=== PATIENT | female | born 1945 | race African-American/Black ===

== ENCOUNTER → 2016-03-26 | Outpatient (CLI) | payer MEDICARE, OTHER ==
[2014-06-14 15:20] VITALS: BP 110/51
[~2016-03-26] MED LIST: ACET325T9 PO; ACET650S PO; ASCO10002 PO; ASCO120P PO; BISM262T9 PO; CALC-67 PO; CALC200T3 PO; CALC300T5 PO; CALC600T11 PO; CEFP200T PO; CELE200C PO; CYAN10002 IJ; CYAN200014 PO; CYCL1DRO EACHEYE; DEXT1DRO7 OP; DIPH1TAB PO; ESTR0.3T PO; FERR-26 PO; FURO-68 PO; GINS100C PO; GLUC1CAP18 PO; GLUC500T7 PO; IBUP-1060 PO; LACT1CAP29 PO; LATA2.5D3 EACHEYE; LOPE1LIQ7 PO; MESA0.37 PO; MESA800T2 PO; METH-37 PO; MINE3.5O31 EACHEYE; MOME45CR2 TP; MULT-18 PO; NYST1POW2 PO; OMEG1CAP61 PO; POTA20TA12 PO; PROP10DR2 OP; RANI300T3 PO; SULF1TAB23 PO; SULF1TAB3 PO; TIMO5DRO26 EACHEYE; TIMO5DRO5 EACHEYE; TROL177. TP; WARF5TAB PO; [UNRECOGNIZED DRUG - CODE] MC; [UNRECOGNIZED DRUG - CODE] MC; [UNRECOGNIZED DRUG - CODE] MC; [UNRECOGNIZED DRUG - CODE] PO
[2016-03-26 11:27] LABS: BASO % 0 % (0-3); EOS % 0 % (0-3); HEMATOCRIT 38.4 % (36.0-47.0); HEMOGLOBIN 12.9 g/dL (12.0-15.5); LYMPH # 1.5 x10^3/uL (1.0-4.8); LYMPH % 35 % (24-48); MEAN CORPUSCULAR HEMOGLOBIN 32 pg (25-35); MEAN CORPUSCULAR HGB CONC 34 g/dL (31-37); MEAN CORPUSCULAR VOLUME 95 fL (79-100); MONO % 6 % (0-9); NEUT % 59 % (31-73); PLATELET COUNT 175 x10^3/uL (140-400); RED BLOOD COUNT 4.02 x10^6/uL (3.50-5.40); RED CELL DISTRIBUTION WIDTH 13.9 % (11.5-14.5); WHITE BLOOD COUNT 4.3 x10^3/uL (4.0-11.0)
[2016-03-26 11:37] LABS: PROTHROMBIN TIME PATIENT 12.9 SEC (11.7-14.0)
[2016-03-26 11:45] LABS: ALBUMIN 3.4 g/dL (3.4-5.0); CALCIUM 8.9 mg/dL (8.5-10.1); CREATININE 0.6 mg/dL (0.6-1.0); GFR 119.2; POTASSIUM 4.3 mmol/L (3.5-5.1)
[2016-03-26 12:58] LABS: BILIRUBIN,URINE NEGATIVE (NEG); GLUCOSE,URINE NEGATIVE (NEG); NITRITE,URINE NEGATIVE (NEG); PROTEIN,URINE NEGATIVE (NEG-TRACE); UROBILINOGEN,URINE 0.2 mg/dL (0.2 mg/dL)
[2016-03-26 13:21] LABS: BACTERIA,URINE FEW /HPF (0-FEW); RBC,URINE OCC /HPF (0-2); SQUAMOUS EPITHELIAL CELL,UR MOD /LPF
== END | disposition home or self-care (01) ==
LOC: SURGPAT 10:31
PROVIDERS: ATTEND Orthopaedic Surgery
DX: Z01.812 Encounter for preprocedural laboratory examination (principal)
CPT/HCPCS: 36415; 80048; 81001; 82040; 83036; 85027; 85610; 85651; 85730; 87086; 87641

== ENCOUNTER 2016-04-20 10:36 | Inpatient (IN) | payer MEDICARE, OTHER ==
--- NOTE | 2016-04-19 12:37 | PDOC1 ---
History and Physical Date of Admission Date of Admission DATE: 04/20/16 Identification/Chief Complaint Chief Complaint left knee osteoarthritis pain Source Source: Chart review History of Present Illness History of Present Illness Alexandria is a 70 year old female here today for her right knee. She has a history of right total knee arthroplasty done by Dr. Guerrier in may of 2015. She stated she fell 2 weeks ago, she did not fall on her knee but she did fall on the floor. She would also like to discuss having her left knee replaced. We obtained a updated medication list today. Past Medical History Cardiovascular: HTN, Hyperlipidemia GI: GERD, Peptic Ulcer disease, Other (diverticulitis) Musculoskeletal: Osteoarthritis Rheumatologic: Other Endocrine: Diabetes (Diabetes Insipidus) Past Surgical History Past Surgical History: Hysterectomy, Colon Resection, Other (right TKA 05/2015) Family History Family History: Cancer, Diabetes, Heart Disease, Osteo Arthiritis, Stroke Social History Smoke: No ALCOHOL: none Drugs: None Current Medications Current Medications Active Scripts Active Reported Latanoprost 2.5 Ml Drops 1 Drop EACHEYE QHS Vitamin B-12 (Cyanocobalamin (Vitamin B-12)) 2,000 Mcg Tablet 2,000 Mcg PO DAILY Robaxin (Methocarbamol) 500 Mg Tablet 500 Mg PO TID Restasis (Cyclosporine) 1 Each Droperette 1 Drop EACHEYE BID Bactrim 400-80 Mg Tablet (Sulfamethoxazole/Trimethoprim) 1 Each Tablet 1 Each PO DAILY Tylenol (Acetaminophen) 325 Mg Tablet 650 Mg PO PRN PRN Not given this hospitalization. May resume at home as needed for pain. Artificial Tears Eye Oint (Mineral Oil/Petrolatum,White) 3.5 Gm Oint...g. 3.5 Gm EACHEYE HS last dose 06/13/14 at 9 pm next dose due 06/14/14 at 9 pm. Probiotic (Lactobacillus Combo No.10) 1 Each Capsule 1 Each PO DAILY Last dose 06/14/14 at 8 am next dose 06/15/14 at 8 am Fish Oil 1,200 Mg Softgel ([place]-3S/Dha/Epa/Fish Oil) 1 Each Capsule 1 Each PO DAILY NOt given. May resume at home as ordered by doctor. Glucosamine Chondroitin Cap (Gluc Hcl/Csa/Vazquez Hy/Hyalur Ac) 1 Each Capsule 1 Each PO DAILY NOt given. May resume at home as ordered by doctor. Vitamin C (Ascorbic Acid) 1,000 Mg Tablet 1,000 Mg PO DAILY NOt given. May resume at home as ordered by doctor. Calcium Carbonate 600 Mg Tablet 600 Mg PO DAILY NOt given. May resume at home as ordered by doctor. Apriso (Mesalamine) 0.375 Gm Cap.er.24h 0.375 Gm PO BID NOt given. May resume at home as ordered by doctor if needed. Potassium Chloride 20 Meq Tab.er.prt 20 Meq PO PRN Q24HRS PRN Not given. May resume at home as ordered by doctor if needed with lasix. Daily Vitamin (Multivitamin) 1 Each Tablet 1 Each PO DAILY Last dose 06/14/14 next dose 06/15/14 Pepto-Bismol (Bismuth Subsalicylate) 262 Mg Tab.chew 262 Mg PO PRN DAILY Not given. May resume at home as ordered by doctor. Imodium A-D (Loperamide Hcl) 1 Mg/7.5 Ml Liquid 1 Mg PO PRN DAILY Not given. May resume at home as ordered by doctor for loose stools. Ferrous Sulfate 325 Mg Tablet 325 Mg PO DAILY Last dose 06/14/14 next dose due 06/15/14. Zantac (Ranitidine Hcl) 300 Mg Tablet 300 Mg PO HS Lasix (Furosemide) 40 Mg Tablet 40 Mg PO PRN Q24HRS NOt given. May resume at home as needed for water pill. Restasis (Cyclosporine) 1 Each Droperette 0.05 % EACHEYE BID last dose 06/14/14 at 9 am. Next dose due 06/14/14 at 9 pm. Allergies Allergies: Coded Allergies: Penicillins (Verified Allergy, Intermediate, RASH AND HIVES, 03/26/16) morphine (Verified Adverse Reaction, Intermediate, Nausea and Vomiting, ) oxycodone (Verified Adverse Reaction, Intermediate, Nausea, 03/26/16) Physical Exam General: Alert, Oriented X3, Cooperative, No acute distress HEENT: Atraumatic, EOMI Lungs: Normal air movement Heart: RRR Abdomen: Soft Extremities: No clubbing, No cyanosis, Normal pulses, Other (The right knee shows normal alignment, no masses and no effusion. No tenderness to palpation. Range of motion is 0-120 degrees, with typical total knee crepitus but no pain at the extremes of motion. The knee is stable to varus and valgus stress without subluxation or laxity. Muscle strength is normal (5/5) for quadriceps and hamstrings, and muscle tone is normal. The extensor mechanism is intact. The skin shows a well-healed midline scar from total knee arthroplasty. No drainage lesions or ulcers. Light touch sensation is intact. No edema and no varicosities. Dorsalis pedis pulse is intact and capillary refill is normal.) Skin: No rashes, No breakdown, No significant lesion Neuro: Normal speech, Sensation intact Psych/Mental Status: Mental status NL, Mood NL Images Images IMAGING REPORT Joint survey hips, knees, and ankles Clinical information: Preop for left total knee arthroplasty Comparison: None. Findings Bones: The mechanical axis from hip joint ankle joint, and the femoral shaft create a 5 angle. There is a right total knee arthroplasty in good position. Joints: There is narrowing of the left knee joint but no malalignment. The right total knee appears aligned correctly with the mechanical axis through the center of the knee joint. Soft tissue: Normal. Impression: Severe left knee osteoarthritis with no varus or valgus malalignment. The femoral shaft has 5 angle from the mechanical axis. Dictated and Signed Using Voice Recognition Software Aubrey Guerrier MD VTE Prophylaxis Ordered VTE Prophylaxis Devices: Yes VTE Pharmacological Prophylaxi: Yes Assessment/Plan Assessment/Plan left knee osteoarthritis. She and Dr. Guerrier had a long discussion about knee replacement surgery. She is 70 years old, and has failed other treatments such as supervised physical therapy, cortisone injections, and glucosamine. She takes Tylenol for pain. She has no one at home with her in think she would need to go to longterm postoperatively. I did her right total knee arthroplasty previously and she did well. She had surgery with Dr. Rashid for cervical spinal stenosis in October. We discussed the potential risks of infection, neurovascular injury, bleeding, blood clots, need for revision surgery, or other potential surgical or anesthetic complications. All of her questions were answered and she desires to proceed with left total knee arthroplasty at a mutually convenient date. DIANE ENNIS Apr 19, 2016 12:37
[2016-04-20] VITALS (7 sets, daily range): BP systolic 100–130; BP diastolic 45–64
[~2016-04-20] VITALS: Ht 167.6 cm; Wt 93.4 kg
[~2016-04-20 10:36] MED LIST changes: +ACETAMINOPHEN 500 MG TABLET PO PRN; +CELECOXIB 200 MG CAPSULE PO PRN; +CLINDAMYCIN 600MG PREMIX 50 ML IV PRN; +FENTANYL PF 100 MCG/2 ML VIAL. IV PRN; +IV RINGERS,LACTATED 1000ML 1,000 ML IV SCH; +LIDOCAINE 1% 1 ML SYRINGE. ID PRN; +MORPHINE SULFATE 5 MG, KETOROLAC TROMETHAMINE 30 MG, ROPIVacaine 0.5% PF 60 ML, EPINEPH... INT ART ONE; +ONDANSETRON PF 4 MG/2 ML VIAL. IV PRN; +PROCHLORPERAZINE 10 MG/2 ML VIAL. IV PRN; +TOBRAMYCIN POWDER 1.2 GM VIAL. ONE; +VANCOMYCIN 1 GM VIAL. ONE
[2016-04-20] MEDS ORDERED: LIDOCAINE 2% 100 MG/5 ML DISP.SYRIN. ONE (11:13)
[2016-04-20] MEDS ORDERED: FENTANYL PF 250 MCG/5 ML VIAL. ONE (11:13)
[2016-04-20] MEDS ORDERED: PROPOFOL 20 ML IV ONE (11:13)
[2016-04-20] MEDS ORDERED: SEVOFLURANE 61 TO 120 MINUTES. IH ONE (11:13)
[2016-04-20] MEDS ORDERED: FAMOTIDINE 20 MG/2 ML VIAL ONE (11:13)
[2016-04-20] MEDS ORDERED: ONDANSETRON PF 4 MG/2 ML VIAL. ONE (11:14)
[2016-04-20] MEDS ORDERED: CELE200C PO (11:30)
[2016-04-20] MEDS ORDERED: SCOPOLAMINE 1.5MG PATCH. TD ONE ×2 (12:03→12:15)
[2016-04-20] MEDS ORDERED: EPHEDRINE PF IN SALINE 50 MG/5 ML DISP.SYRIN. IV ONE (13:48)
[2016-04-20] MEDS ORDERED: GLYCOPYRROLATE 1 MG/5 ML VIAL. ONE (14:20)
[2016-04-20] MEDS ORDERED: NEOSTIGMINE METHYLSULFATE 5 MG/5 ML SYRINGE. ONE (14:20)
[2016-04-20] MEDS: IV DEXTROSE 5 %-0.45 % NACL 1,000 ML IV SCH (14:42)
--- NOTE | 2016-04-20 14:42 | PDOC4 ---
Operative Note Operative Note Date of Procedure: April 20, 2016 Pre-Op Diagnosis: Osteoarthritis left knee Post-Op Diagnosis: Osteoarthritis left knee Procedure: left total knee arthroplasty Surgeon: Edilberto Guerrier MD Edge Burnisher Uppers: Brigida Uribe PA-C Anesthesia: General EBL: 100 mL Specimens Obtained: left knee bone and soft tissue Complications: none Implant Company: [employer] Drains: pain catheter Tourniquet time: 61 minutes Indications for Procedure: Arthritis pain unrelieved by nonoperative management. Findings: Severe osteoarthritis with bone on bone contact in all three compartments Implants used: Size 5 left bicruciate stabilized Journey II BCS cobalt chrome femoral component, size 5 left Journey nonporous tibial baseplate, size 3 -4 9 mm left Journey II BCS XLPE articular insert, 35 mm oval Sofi II resurfacing patellar component Procedure in Detail: The patient was identified in the preoperative holding area, and the correct left extremity was marked by me. The patient was taken to the operating room where the patient was anesthetized by the Department of Anesthesia. Preoperative antibiotics were given intravenously. Tranexamic acid was not given in this patient due to underlying risks. A "time-out" procedure was performed. The patient was positioned supine on the operative table with a tourniquet on the upper thigh. The limb was thoroughly prepped and draped in sterile fashion. An impervious stockinet and adhesive drape were used such that the skin was entirely covered. An Mullins leg lockhart was used. The operating team wore personal exhaust-ventilated hoods. The tourniquet was inflated to 350 mm Hg. A midline skin incision was made with a scalpel using the patella and tibial tubercle as landmarks. Electrocautery was used for hemostasis. My salon assistant used rake retractors. A medial parapatellar arthrotomy incision was used with extension into the distal quadriceps tendon. The patella was retracted laterally and Hohmann retractors were now used by my salon assistant. Excess synovium, the menisci, and the cruciate ligaments were resected sharply. The patella was assessed and excess synovium and osteophytes around the patellar articulation were removed. The patella was measured with a caliper, cut freehand with a saw using caliper measurements, sized, and then drilled for an oval three-pegged patella component. Periarticular injection was used in the suprapatellar pouch and distal quadriceps muscle. Whitesides's line was assessed on the femur. An intra-medullary 5 degree cutting guide was pinned to the femur, and a distal femoral cut was made with an oscillating saw. An additional 2 mm resection was used due to the deep femoral sulcus, and deficient condyle.My salon assistant held Hohmann retractors and an Army-Will[place]ord retractor to protect the medial and lateral collateral ligaments, the patellar tendon, the skin and the other soft tissues. An anterior referencing guide was applied with external rotation of 5 to match Whitesides line. A 5-in-1 Journey II cutting guide was then applied and pinned to the femur. The posterior, anterior, and all chamfer cuts were made with the oscillating saw. An extramedullary guide was pinned to the tibia and rotational alignment and the planned resection thickness assessed. An external alignment wendie was used to verify the planned cut in the varus-valgus plane and regarding posterior slope referencing the tibial tubercle, the tibial shaft, the ankle joint, and the second metatarsal. The upper tibia was cut made with an oscillating saw. My salon assistant held Hohmann retractors and a posterior cruciate ligament retractor to protect the medial and lateral collateral ligaments, the patellar tendon, the skin, the peroneal nerve and the other soft tissues. The upper tibia was sized with a trial baseplate. The posterior compartment was cleared of osteophytes and loose bodies, and posterior capsule released. Lisa-articular injection was used in the posterior compartment. The box cut for a posterior stabilized component was made. A preliminary reduction was performed with a trial femur, trial tibial baseplate and trial polyethylene. Soft-tissue balancing was now performed, and extension and rotation of the alignments was checked using a guide wendie in the tibial trial and a guide pin in the femur. No additional releases were required. The stability was assessed using different thicknesses of tibial articular surface to find satisfactory stability and good range of motion. The rotation of the tibial component was marked on the upper tibia. Final trial reduction was now performed verifying patella tracking and tibiofemoral stability and alignment. The tibia preparation was completed with a drill, saw, and fin punch at the previously noted rotation. The final implants were verified and opened. Outer gloves were changed by the operating team. The bone cuts were washed thoroughly with the [employer] InterPulse device and dried. Two packages of Palacos bone cement were mixed in powdered form with 1 gm of Vancomycin and 1.2 g tobramycin, then vacuum-mixed with the monomer, and placed into a cement gun. The cut surfaces of the bone were thoroughly dried with Adler-tip suction and with laparotomy sponges for cement interdigitation. The final components were cemented into place. The knee was kept at full extension while the cement hardened, and excess cement was removed. No tranexamic acid was given at this point. A final periarticular injection was used for pain relief. The tourniquet was released, and electrocautery was used for hemostasis. A final check of [id number] and stability was made, and the polyethylene implant final size was chosen. The polyethylene implant was secured to the tibial baseplate, and the knee was reduced a final time. Thorough irrigation was used. A pain catheter was inserted. The arthrotomy was closed with interrupted [id number] #1 PDS suture. The capsulotomy was then run with #1 STRATAFIX symmetric PDS plus. The subcutaneous tissues were closed with #2-0 Vicryl by my salon assistant. The skin was reapproximated with 3-0 Monocryl and Steri-Strips by my salon assistant. A bulky sterile dressing was applied. Needle and sponge counts were correct. EDILBERTO GUERRIER MD Apr 20, 2016 14:42
[2016-04-20] MEDS ORDERED: FUROSEMIDE 40 MG TABLET PO PRN (14:45)
[2016-04-20] MEDS ORDERED: METOCLOPRAMIDE HCL 10 MG/2 ML VIAL. IV PRN (14:45)
[2016-04-20] MEDS ORDERED: FENTANYL PF 100 MCG/2 ML VIAL. IV PRN ×2 (14:45)
[2016-04-20] MEDS ORDERED: 0.9 % SODIUM CHLORIDE 10 ML DISP.SYRIN. IV PRN (14:45)
[2016-04-20] MEDS ORDERED: ACETAMINOPHEN 325 MG TABLET. PO PRN (14:45)
[2016-04-20] MEDS ORDERED: DIPHENHYDRAMINE 50 MG/ML VIAL IV PRN (14:45)
[2016-04-20] MEDS ORDERED: DEXTROSE 50% 25 GM / 50ML DISP.SYRIN. IV PRN (14:45)
[2016-04-20] MEDS ORDERED: PROCHLORPERAZINE 10 MG/2 ML VIAL. IV PRN (14:45)
[2016-04-20] MEDS ORDERED: HYDROCODONE/APAP 10/325 TABLET. PO PRN (14:45)
[2016-04-20] MEDS ORDERED: POTASSIUM CHLORIDE 20 MEQ TABLET.ER. PO PRN (14:45)
[2016-04-20] MEDS ORDERED: CALCIUM CARBONATE 500 MG TAB.CHEW PO PRN (14:45)
[2016-04-20] MEDS ORDERED: ZOLPIDEM 5 MG TABLET. PO PRN (14:45)
[2016-04-20] MEDS ORDERED: PROCHLORPERAZINE 5 MG TABLET. PO PRN (14:45)
[2016-04-20] MEDS ORDERED: TRAMADOL 50 MG TABLET. PO PRN ×2 (14:45)
--- NOTE | 2016-04-20 15:13 | RAD ---
Portable left knee, 2 views, 04/20/2016: History: Postop evaluation A total knee prosthesis is in place in satisfactory position. There is no evidence of a retained surgical instrument, needle or radiopaque sponge on these 2 views.
[2016-04-20] MEDS: FERROUS SULFATE 325 MG TABLET PO SCH (18:01)
[2016-04-20] MEDS: CLINDAMYCIN 600MG PREMIX 50 ML IV SCH (18:01)
[2016-04-20] MEDS: SENNOSIDES/DOCUSATE 8.6/50MG TABLET. PO SCH (18:02)
[2016-04-20] MEDS: KETOROLAC TROMETHAMINE 30 MG, BUPIVACAINE MPF 0.25% 20 ML, EPINEPHRINE 0.5 MG in TOTAL ... INT ART SCH (18:06)
[2016-04-20] MEDS: METHOCARBAMOL 500 MG TABLET PO SCH (20:56)
[2016-04-20] MEDS: ASPIRIN ENTERIC COATED 325 MG TABLET.DR. PO SCH (20:56)
[2016-04-20] MEDS: FAMOTIDINE 20 MG TABLET. PO SCH (20:56)
[2016-04-20] MEDS: CELECOXIB 200 MG CAPSULE PO SCH (20:56)
[2016-04-20] MEDS: LATANOPROST 0.005% OPHTH SOLUTION 2.5ML BOTTLE. OU SCH (20:56)
[2016-04-20] MEDS: CYCLOSPORINE 0.05% OPTH DROPERETTE. OU SCH (20:57)
[2016-04-20] MEDS: MINERAL OIL/PETROLATUM,WHITE OPHTH OINT 3.5GM TUBE. OU SCH (20:58)
[2016-04-20] MEDS ORDERED: CYCLOSPORINE 0.05% OPTH DROPERETTE. OU SCH (21:00)
[2016-04-21] MEDS: IV DEXTROSE 5 %-0.45 % NACL 1,000 ML IV SCH ×3 (00:42→20:42)
[2016-04-21] MEDS: CLINDAMYCIN 600MG PREMIX 50 ML IV SCH ×2 (01:00→06:38)
[2016-04-21 03:00] VITALS: BP 94/48
[2016-04-21] MEDS: HYDROCODONE/APAP 7.5/325MG TABLET. PO PRN ×5 (03:33→23:49)
[2016-04-21] MEDS ORDERED: MAGNESIUM HYDROXIDE 2,400 MG/30 ML ORAL.SUSP. PO PRN (06:00)
[2016-04-21] MEDS: KETOROLAC TROMETHAMINE 30 MG, BUPIVACAINE MPF 0.25% 20 ML, EPINEPHRINE 0.5 MG in TOTAL ... INT ART SCH (06:01)
[2016-04-21 06:30] VITALS: BP 83/41
[2016-04-21] MEDS: SMZ/TMP 400/80MG TABLET. PO SCH (09:27)
[2016-04-21] MEDS: ASPIRIN ENTERIC COATED 325 MG TABLET.DR. PO SCH ×2 (09:27→20:59)
[2016-04-21] MEDS: METHOCARBAMOL 500 MG TABLET PO SCH ×3 (09:28→21:47)
[2016-04-21] MEDS: CYCLOSPORINE 0.05% OPTH DROPERETTE. OU SCH ×2 (09:28→20:59)
[2016-04-21] MEDS: MULTIVITAMIN with MINERAL TABLET. PO SCH (09:28)
[2016-04-21] MEDS: FERROUS SULFATE 325 MG TABLET PO SCH ×2 (09:28→17:12)
[2016-04-21] MEDS: LACTOBACILLUS ACIDOPH & BULGAR 1 TABLET. PO SCH (09:28)
[2016-04-21] MEDS: CELECOXIB 200 MG CAPSULE PO SCH ×2 (09:28→20:59)
[2016-04-21] MEDS: SENNOSIDES/DOCUSATE 8.6/50MG TABLET. PO SCH (09:28)
[2016-04-21 11:15] VITALS: BP 86/48
--- NOTE | 2016-04-21 13:15 | PDOC ---
PROGRESS NOTES Subjective Subjective No complaints. Morning therapy went well. Objective Vital Signs Vital Signs Date Time Temp Pulse Resp B/P Pulse Ox O2 Delivery O2 Flow Rate FiO2 04/21/16 13:06 20 Room Air 04/21/16 11:15 98.5 86 86/48 98 98.5 04/20/16 15:23 10 Physical Exam Dressing dry and intact Pain catheter in place. Good dorsiflexion and plantarflexion of the foot with no evidence of neurovascular injury or DVT. Calves are soft and nontender with a negative Homans sign. Peripheral pulses and light touch sensation intact. Labs Laboratory Tests Test 04/20/16 12:17 04/20/16 14:58 04/20/16 17:20 04/20/16 20:45 Glucose (Fingerstick) 92mg/dL (70-99) 106mg/dL (70-99) 89mg/dL (70-99) 128mg/dL (70-99) Test 04/21/16 06:45 Glucose (Fingerstick) 120mg/dL (70-99) Laboratory Tests Test 04/20/16 14:58 04/20/16 17:20 04/20/16 20:45 04/21/16 06:45 Glucose (Fingerstick) 106mg/dL (70-99) 89mg/dL (70-99) 128mg/dL (70-99) 120mg/dL (70-99) Imaging Postoperative x-rays reviewed by me, showing satisfactory total knee replacement , with no apparent complications. Assessment Assessment POD #1 TKA Problems: Plan Plan of Care Continue POC including DVT prophylaxis and physical therapy. DIANE ENNIS Apr 21, 2016 13:15
[2016-04-21] MEDS: MESALAMINE 400 MG PO SCH ×2 (15:15→20:59)
[2016-04-21 15:20] VITALS: BP 88/50
[2016-04-21] MEDS ORDERED: BISACODYL 10 MG SUPP.RECT PR PRN (16:00)
[2016-04-21 20:31] VITALS: BP 97/54
[2016-04-21] MEDS: LATANOPROST 0.005% OPHTH SOLUTION 2.5ML BOTTLE. OU SCH (20:59)
[2016-04-21] MEDS: FAMOTIDINE 20 MG TABLET. PO SCH (20:59)
[2016-04-21] MEDS: MINERAL OIL/PETROLATUM,WHITE OPHTH OINT 3.5GM TUBE. OU SCH (21:47)
[2016-04-21 22:47] VITALS: BP 97/54
[2016-04-22 04:50] LABS: HEMATOCRIT 24.2 % (36.0-47.0); HEMOGLOBIN 8.1 g/dL (12.0-15.5)
[2016-04-22] MEDS: HYDROCODONE/APAP 7.5/325MG TABLET. PO PRN ×4 (06:14→20:42)
[2016-04-22 06:30] VITALS: BP 116/51
[2016-04-22] MEDS: IV DEXTROSE 5 %-0.45 % NACL 1,000 ML IV SCH ×2 (06:42→15:00)
[2016-04-22] MEDS: ASPIRIN ENTERIC COATED 325 MG TABLET.DR. PO SCH ×2 (08:07→20:34)
[2016-04-22] MEDS: MESALAMINE 400 MG PO SCH ×2 (08:07→20:34)
[2016-04-22] MEDS: METHOCARBAMOL 500 MG TABLET PO SCH ×3 (08:07→20:34)
[2016-04-22] MEDS: SENNOSIDES/DOCUSATE 8.6/50MG TABLET. PO SCH (08:07)
[2016-04-22] MEDS: CELECOXIB 200 MG CAPSULE PO SCH ×2 (08:07→20:34)
[2016-04-22] MEDS: LACTOBACILLUS ACIDOPH & BULGAR 1 TABLET. PO SCH (08:07)
[2016-04-22] MEDS: CYCLOSPORINE 0.05% OPTH DROPERETTE. OU SCH ×2 (08:08→20:34)
[2016-04-22] MEDS: SMZ/TMP 400/80MG TABLET. PO SCH (08:08)
[2016-04-22] MEDS: FERROUS SULFATE 325 MG TABLET PO SCH ×2 (08:08→17:30)
[2016-04-22] MEDS: MULTIVITAMIN with MINERAL TABLET. PO SCH (08:08)
--- NOTE | 2016-04-22 12:47 | PDOC ---
PROGRESS NOTES Subjective Subjective mild pain Objective Vital Signs Vital Signs Date Time Temp Pulse Resp B/P Pulse Ox O2 Delivery O2 Flow Rate FiO2 04/22/16 09:44 Room Air 04/22/16 06:30 98.6 20 20 116/51 95 98.6 04/21/16 18:15 10.0 Physical Exam dressings removed. mild blister formation distally and laterally consistent with hematoma (and no use of tranexamic acid due to previous clot). Distal NVI. Incision intact. Calf soft and NT Labs Laboratory Tests Test 04/20/16 14:58 04/20/16 17:20 04/20/16 20:45 04/21/16 06:45 Glucose (Fingerstick) 106mg/dL (70-99) 89mg/dL (70-99) 128mg/dL (70-99) 120mg/dL (70-99) Test 04/21/16 20:33 04/22/16 03:20 04/22/16 06:33 Glucose (Fingerstick) 101mg/dL (70-99) 114mg/dL (70-99) Hemoglobin 8.1g/dL (12.0-15.5) Hematocrit 24.2% (36.0-47.0) Mean Corpuscular Hemoglobin Concent 34g/dL (31-37) Laboratory Tests Test 04/21/16 20:33 04/22/16 03:20 04/22/16 06:33 Glucose (Fingerstick) 101mg/dL (70-99) 114mg/dL (70-99) Hemoglobin 8.1g/dL (12.0-15.5) Hematocrit 24.2% (36.0-47.0) Mean Corpuscular Hemoglobin Concent 34g/dL (31-37) Imaging x-rays reviewed by me and show satisfactory TKA without complications. Assessment Assessment POD# 2 TKA Problems: Plan Plan of Care dressing changes for blisters and incision discharge planning continue DVT prophylaxis EDILBERTO HINDS MD Apr 22, 2016 12:47
[2016-04-22 15:00] VITALS: BP 95/62
--- NOTE | 2016-04-22 16:07 | PATHOLOGY ---
PATHOLOGY REPORT * * * * * * * * FINAL DIAGNOSIS: Segments of bone and soft tissue, left total knee arthroplasty: - Advanced degenerative arthritis. (JPM:; d/t: 04/22/16) REPORT ELECTRONICALLY SIGNED BY: Cruz Sales M.D. DATE/TIME: 04/22/2016 16:07 * * * * * * * * GROSS PATHOLOGY: Received in formalin labeled "Alexandria Graham left knee tissue," are multiple segments of bone, including tibial plateau, measuring 15.0 x 10.1 x 4.8 cm in aggregate dimensions admixed with soft tissue; meniscus is not present. The specimen shows focal eburnation of the articular surfaces. [place] sections of bone and soft tissue are submitted in cassette A1, following decalcification. (KAH; 04/21/2016) INITIAL CPT CODE(S): A; 29099, 59386 Professional services performed [place] [facility] [place] [address] Technical services performed by [facility] at [address] [place] [address], [facility] [address] [address]. SPECIMEN(S) RECEIVED: A.Left knee tissue CLINICAL HISTORY: Left knee OA PATIENT: ALEXANDRIA GRAHAM /AGE: [id number] 1945 (Age: 70) PATIENT #: [id number] ALT CASE #: SPECIMEN COLLECTION DATE: 04/20/2016 SPECIMEN RECEIVED DATE: 04/20/2016 [facility] - [address] [place] [address] - PHONE: [phone] * * * END OF REPORT * * *
[2016-04-22 18:04] VITALS: BP 106/62
[2016-04-22] MEDS: MINERAL OIL/PETROLATUM,WHITE OPHTH OINT 3.5GM TUBE. OU SCH (20:34)
[2016-04-22] MEDS: FAMOTIDINE 20 MG TABLET. PO SCH (20:34)
[2016-04-22] MEDS: LATANOPROST 0.005% OPHTH SOLUTION 2.5ML BOTTLE. OU SCH (20:34)
[2016-04-23] MEDS: HYDROCODONE/APAP 7.5/325MG TABLET. PO PRN ×3 (01:39→13:08)
[2016-04-23 06:25] VITALS: BP 95/54
[2016-04-23] MEDS: ASPIRIN ENTERIC COATED 325 MG TABLET.DR. PO SCH (08:02)
[2016-04-23] MEDS: MESALAMINE 400 MG PO SCH (08:02)
[2016-04-23] MEDS: SMZ/TMP 400/80MG TABLET. PO SCH (08:02)
[2016-04-23] MEDS: LACTOBACILLUS ACIDOPH & BULGAR 1 TABLET. PO SCH (08:02)
[2016-04-23] MEDS: SENNOSIDES/DOCUSATE 8.6/50MG TABLET. PO SCH (08:02)
[2016-04-23] MEDS: CYCLOSPORINE 0.05% OPTH DROPERETTE. OU SCH (08:02)
[2016-04-23] MEDS: METHOCARBAMOL 500 MG TABLET PO SCH ×2 (08:02→15:03)
[2016-04-23] MEDS: MULTIVITAMIN with MINERAL TABLET. PO SCH (08:03)
[2016-04-23] MEDS: CELECOXIB 200 MG CAPSULE PO SCH (08:03)
[2016-04-23] MEDS: FERROUS SULFATE 325 MG TABLET PO SCH (08:05)
[2016-04-23 11:28] LABS: HEMATOCRIT 26.6 % (36.0-47.0)
--- NOTE | 2016-04-23 14:34 | PDOC ---
PROGRESS NOTES Subjective Subjective Pain improved, progressing ROM in PT Objective Vital Signs Vital Signs Date Time Temp Pulse Resp B/P Pulse Ox O2 Delivery O2 Flow Rate FiO2 04/23/16 08:15 Room Air 04/23/16 06:29 18 95 04/23/16 06:25 99.2 80 95/54 99.2 04/21/16 18:15 10.0 Physical Exam Dressing is dry to trace blood, but distal to incision and lateral is tissue swelling and mild hematoma/blood in tissues and secondary blister formation with clear fluid in blisters. Few have ruptured, several are about the same as yesterday. They are in a transverse pattern related to intra-operative TRACY and Alvorado holding the blood from tracking further distal. Labs Laboratory Tests Test 04/21/16 20:33 04/22/16 03:20 04/22/16 06:33 04/23/16 11:00 Glucose (Fingerstick) 101mg/dL (70-99) 114mg/dL (70-99) Hemoglobin 8.1g/dL (12.0-15.5) 9.0g/dL (12.0-15.5) Hematocrit 24.2% (36.0-47.0) 26.6% (36.0-47.0) Mean Corpuscular Hemoglobin Concent 34g/dL (31-37) 34g/dL (31-37) Laboratory Tests Test 04/23/16 11:00 Hemoglobin 9.0g/dL (12.0-15.5) Hematocrit 26.6% (36.0-47.0) Mean Corpuscular Hemoglobin Concent 34g/dL (31-37) Assessment Assessment POD#3 after TKA Problems: Plan Plan of Care Continue daily dressing changes and chlorhexidine daily to incision and blisters. EDILBERTO HINDS MD Apr 23, 2016 14:34
[2016-04-23] MEDS ORDERED: ASPI325T11 PO (14:38)
--- NOTE | 2016-04-23 14:41 | PDOC3 ---
Discharge Summary Visit Information Date of Admission: Apr 20, 2016 Date of Discharge: Apr 23, 2016 Admitting Diagnosis: left knee osteoarthritis pain Final Diagnosis Problems Medical Problems: (1) Primary osteoarthritis of left knee Status: Acute Brief Hospital Course Allergies Allergies Coded Allergies Type Severity Reaction Last Updated Verified Penicillins Allergy Intermediate RASH AND HIVES 04/20/16 Yes morphine Adverse Reaction Intermediate Nausea and Vomiting 04/20/16 Yes oxycodone Adverse Reaction Intermediate Nausea 04/20/16 Yes Vital Signs Vital Signs Date Time Temp Pulse Resp B/P Pulse Ox O2 Delivery O2 Flow Rate FiO2 04/23/16 08:15 Room Air 04/23/16 06:29 18 95 04/23/16 06:25 99.2 80 95/54 99.2 Lab Results Laboratory Tests Test 04/21/16 20:33 04/22/16 03:20 04/22/16 06:33 04/23/16 11:00 Glucose (Fingerstick) 101mg/dL (70-99) 114mg/dL (70-99) Hemoglobin 8.1g/dL (12.0-15.5) 9.0g/dL (12.0-15.5) Hematocrit 24.2% (36.0-47.0) 26.6% (36.0-47.0) Mean Corpuscular Hemoglobin Concent 34g/dL (31-37) 34g/dL (31-37) Laboratory Tests Test 04/23/16 11:00 Hemoglobin 9.0g/dL (12.0-15.5) Hematocrit 26.6% (36.0-47.0) Mean Corpuscular Hemoglobin Concent 34g/dL (31-37) Brief Hospital Course 70 year old female who presented with left knee osteoarthritis, for elective total knee arthroplasty. The patient underwent total knee arthroplasty under general anesthesia the day of admission. Perioperative antibiotics and DVT prophylaxis were used. Postoperatively physical therapy and case management were consulted. The patient progressed and is stable for discharge. Discharge Information Condition at Discharge: Stable Follow Up: Weeks (2) Disposition/Orders: D/C to Another Facility ([facility]) Scheduled Ascorbic Acid (Vitamin C) 1,000 MG PO DAILY (Reported) Bismuth Subsalicylate (Pepto-Bismol) 262 MG PO PRN DAILY (Reported) Calcium Carbonate (Calcium Carbonate) 600 MG PO DAILY (Reported) Celecoxib (Celebrex) 400 MG PO BID (Reported) Cyanocobalamin (Vitamin B-12) (Vitamin B-12) 2,000 MCG PO DAILY (Reported) Cyclosporine (Restasis) 0.05 % EACHEYE BID (Reported) Cyclosporine (Restasis) 1 DROP EACHEYE BID (Reported) Ferrous Sulfate (Ferrous Sulfate) 325 MG PO DAILY (Reported) Furosemide (Lasix) 40 MG PO PRN Q24HRS (Reported) Gluc Hcl/Csa/Vazquez Hy/Hyalur Ac (Glucosamine Chondroitin Cap) 1 EACH PO DAILY ( Reported) Lactobacillus Combo No.10 (Probiotic) 1 EACH PO DAILY (Reported) Latanoprost (Latanoprost) 1 DROP EACHEYE QHS (Reported) Loperamide Hcl (Imodium A-D) 1 MG PO PRN DAILY (Reported) Mesalamine (Apriso) 0.375 GM PO BID (Reported) Methocarbamol (Robaxin) 500 MG PO TID (Reported) Mineral Oil/Petrolatum,White (Artificial Tears Eye Oint) 3.5 GM EACHEYE BID ( Reported) Multivitamin (Daily Vitamin) 1 EACH PO DAILY (Reported) Welsh-3S/Dha/Epa/Fish Oil (Fish Oil 1,200 Mg Softgel) 1 EACH PO DAILY (Reported ) Ranitidine Hcl (Zantac) 300 MG PO HS (Reported) Sulfamethoxazole/Trimethoprim (Bactrim 400-80 Mg Tablet) 1 EACH PO DAILY ( Reported) Scheduled PRN Acetaminophen (Tylenol) 650 MG PO PRN PRN PRN PAIN (Reported) Potassium Chloride (Potassium Chloride) 20 MEQ PO PRN Q24HRS PRN PRN TAKES WITH FUROSEMIDE PRN (Reported) Patient Instructions Patient Instructions Patient Instructions Continue to WBAT with walker. Keep dressing dry and intact. F/U with [facility] in 10-14 days. Call for appointment. Physical therapy for TKA Continue DVT prophylaxis. DIANE ENNIS Apr 23, 2016 14:41
[2016-04-23 15:00] VITALS: BP 109/58
[2016-04-23] MEDS ORDERED: FERR-26 PO (15:22)
== END 2016-04-23 15:45 | DRG 470 ==
LOC: OPSVCIP 10:36 → 4 SOUTHEST 17:17
PROVIDERS: ADMIT Orthopaedic Surgery; ATTEND Orthopaedic Surgery
PROC: 0SRD0J9 Replacement of Left Knee Joint with Synthetic Substitute, Cemented, Open Approach (ICD-10-PCS; principal; 2016-04-20 12:00)
DX: M17.12 Unilateral primary osteoarthritis, left knee (principal); E23.2 Diabetes insipidus; E11.9 Type 2 diabetes mellitus without complications; E78.5 Hyperlipidemia, unspecified; I10 Essential (primary) hypertension; K21.9 Gastro-esophageal reflux disease without esophagitis; M48.02 Spinal stenosis, cervical region; Z96.651 Presence of right artificial knee joint; Z82.3 Family history of stroke; Z83.3 Family history of diabetes mellitus; Z87.11 Personal history of peptic ulcer disease; Z91.81 History of falling
CPT/HCPCS: 36415; 73560; 82947; 85014; 85018; 86850; 86900; 86901; 88305; 88311; J0171; J0780; J1885; J2270; J2405; J2704; J2710; J2795; J3010; J3260; J3370; J3490; J7030; J7120; S0028; 97116; 97150; 97530; C1769

== ENCOUNTER → 2016-06-02 | Day surgery (SDC) | payer MEDICARE, OTHER ==
[~2016-06-02] MED LIST changes: -ACET650S PO; +ACET650S19 PO; -ACETAMINOPHEN 500 MG TABLET PO PRN; +ASPI325T11 PO; -CELECOXIB 200 MG CAPSULE PO PRN; -CLINDAMYCIN 600MG PREMIX 50 ML IV PRN; +DOXY100C2 PO; +HYDR-971 PO; +LIDOCAINE 2% PF Vial for OR 5 ML VIAL. ONE; -MORPHINE SULFATE 5 MG, KETOROLAC TROMETHAMINE 30 MG, ROPIVacaine 0.5% PF 60 ML, EPINEPH... INT ART ONE; +PROPOFOL 20 ML IV ONE; -TOBRAMYCIN POWDER 1.2 GM VIAL. ONE; -VANCOMYCIN 1 GM VIAL. ONE
[2016-06-02 09:55] VITALS: BP 109/55
--- NOTE | 2016-06-02 23:21 | HP ---
ADMIT DATE: 06/02/2016 REFERRING PHYSICIAN: Sam Willingham MD HISTORY OF PRESENT ILLNESS: A 70-year-old -[place] female with past medical history significant for hypertension, anemia, alopecia, arthritis, C. diff, diabetes, diverticulosis, history of colonic polyps, seen with persistent anemia and diarrhea. EGD and colonoscopy to further assess. Recommended with a working diagnosis of bacterial overgrowth, denies any melena or hematochezia at this time ____ loose stools per day. PAST MEDICAL HISTORY: Reflux, diarrhea, hypertension, anemia, alopecia, history of blood clots, C. diff colitis and diabetes. ALLERGIES: PENICILLIN AND LOVENOX. MEDICATIONS: Include aspirin, Pepto-Bismol, vitamin B12, Restasis eyedrops, Lasix, glucosamine, ____, multivitamin, Zantac and Bactrim. SOCIAL HISTORY: Significant for heart disease, hypertension in multiple family members, diabetes with 2 siblings. She is a former smoker and social drinker. PHYSICAL EXAMINATION: GENERAL: Reveals an -[place] female. VITAL SIGNS: Temperature is 98.2, pulse 97, respirations 18. HEENT: Normocephalic and atraumatic. Pupils and extraocular muscles not tested. Sclerae anicteric. NECK: Supple. LUNGS: Clear. CARDIOVASCULAR: Reveals S1, S2 without S3, S4 or appreciable murmur. ABDOMEN: Reveals soft abdomen, multiple surgical incisions, without appreciable hepatosplenomegaly. EXTREMITIES: Reveals no cyanosis, clubbing or edema. IMPRESSION: Anemia with diarrhea, etiology is to be determined; peptic ulcer disease; Frausto's; malignancy; arteriovenous malformation; inflammatory bowel disease; bacterial overgrowth and gastrocolic malignancy in the differential. Recommend upper endoscopy and colonoscopy to further assess. Risks and benefits have been discussed. The patient is willing to proceed at this time. I would like to thank Dr. Willingham for allowing us to consult and participate in this patient's care. AMEENA TALBOT MD DR: ARA/leidy JOB#: [id number] / [id number]
== END | disposition home or self-care (01) ==
LOC: ENDOS 07:52
PROVIDERS: ATTEND Internal Medicine Gastroenterology
DX: K64.0 First degree hemorrhoids (principal); K52.9 Noninfective gastroenteritis and colitis, unspecified; D50.9 Iron deficiency anemia, unspecified; K29.50 Unspecified chronic gastritis without bleeding; I10 Essential (primary) hypertension; E66.9 Obesity, unspecified; M19.90 Unspecified osteoarthritis, unspecified site; F41.9 Anxiety disorder, unspecified; F32.9 Major depressive disorder, single episode, unspecified; E11.9 Type 2 diabetes mellitus without complications; D64.9 Anemia, unspecified; Z90.710 Acquired absence of both cervix and uterus; Z96.651 Presence of right artificial knee joint; Z90.49 Acquired absence of other specified parts of digestive tract
CPT/HCPCS: 43235; 45378; J2704

== ENCOUNTER → 2017-08-29 | Outpatient (CLI) | payer MEDICARE, OTHER ==
[~2017-08-29] MED LIST changes: -ACET325T9 PO; -ACET650S19 PO; -ASCO10002 PO; -ASCO120P PO; -ASPI325T11 PO; -BISM262T9 PO; -CALC-67 PO; -CALC200T3 PO; -CALC300T5 PO; -CALC600T11 PO; -CEFP200T PO; -CELE200C PO; -CYAN10002 IJ; -CYAN200014 PO; -CYCL1DRO EACHEYE; -DEXT1DRO7 OP; -DIPH1TAB PO; -DOXY100C2 PO; -ESTR0.3T PO; -FENTANYL PF 100 MCG/2 ML VIAL. IV PRN; -FERR-26 PO; -FURO-68 PO; -GINS100C PO; -GLUC1CAP18 PO; -GLUC500T7 PO; -HYDR-971 PO; -IBUP-1060 PO; +IOHEXOL 180 MG/ML 10 ML VIAL.; -IV RINGERS,LACTATED 1000ML 1,000 ML IV SCH; -LACT1CAP29 PO; -LATA2.5D3 EACHEYE; -LIDOCAINE 1% 1 ML SYRINGE. ID PRN; +LIDOCAINE 1% PF 2 ML VIAL.; -LIDOCAINE 2% PF Vial for OR 5 ML VIAL. ONE; -LOPE1LIQ7 PO; -MESA0.37 PO; -MESA800T2 PO; -METH-37 PO; -MINE3.5O31 EACHEYE; -MOME45CR2 TP; -MULT-18 PO; -NYST1POW2 PO; -OMEG1CAP61 PO; -ONDANSETRON PF 4 MG/2 ML VIAL. IV PRN; -POTA20TA12 PO; -PROCHLORPERAZINE 10 MG/2 ML VIAL. IV PRN; -PROP10DR2 OP; -PROPOFOL 20 ML IV ONE; -RANI300T3 PO; -SULF1TAB23 PO; -SULF1TAB3 PO; -TIMO5DRO26 EACHEYE; -TIMO5DRO5 EACHEYE; -TROL177. TP; -WARF5TAB PO; -[UNRECOGNIZED DRUG - CODE] MC; -[UNRECOGNIZED DRUG - CODE] MC; -[UNRECOGNIZED DRUG - CODE] MC; -[UNRECOGNIZED DRUG - CODE] PO; +methylPREDNISolone ACETATE 40 MG/ML VIAL.; +methylPREDNISolone ACETATE 80 MG/ML VIAL.
== END | disposition home or self-care (01) ==
LOC: PNCL 10:36
DX: M51.16 Intervertebral disc disorders with radiculopathy, lumbar region (principal); M48.062 Spinal stenosis, lumbar region with neurogenic claudication; M19.90 Unspecified osteoarthritis, unspecified site; Z87.891 Personal history of nicotine dependence; I27.20 Pulmonary hypertension, unspecified; Z96.653 Presence of artificial knee joint, bilateral; Z90.49 Acquired absence of other specified parts of digestive tract; Z90.710 Acquired absence of both cervix and uterus; Z79.82 Long term (current) use of aspirin; Z79.899 Other long term (current) drug therapy; Z88.0 Allergy status to penicillin; Z88.5 Allergy status to narcotic agent; Z83.3 Family history of diabetes mellitus; Z82.49 Family history of ischemic heart disease and other diseases of the circulatory system; I10 Essential (primary) hypertension; Z86.718 Personal history of other venous thrombosis and embolism; Z86.010 Personal history of colon polyps; E66.9 Obesity, unspecified; K21.9 Gastro-esophageal reflux disease without esophagitis; E11.9 Type 2 diabetes mellitus without complications; F32.9 Major depressive disorder, single episode, unspecified; F41.9 Anxiety disorder, unspecified; Z72.89 Other problems related to lifestyle; D64.9 Anemia, unspecified; Z86.14 Personal history of Methicillin resistant Staphylococcus aureus infection; Z79.84 Long term (current) use of oral hypoglycemic drugs
CPT/HCPCS: 62323; J1030; J1040; Q9965

== ENCOUNTER → 2017-09-12 | Outpatient (CLI) | payer MEDICARE, OTHER | LOC: PNCL 10:53 | DX: M51.16 Intervertebral disc disorders with radiculopathy, lumbar region (principal); M48.062 Spinal stenosis, lumbar region with neurogenic claudication; M19.90 Unspecified osteoarthritis, unspecified site; K21.9 Gastro-esophageal reflux disease without esophagitis; F10.21 Alcohol dependence, in remission; D64.9 Anemia, unspecified; E66.9 Obesity, unspecified; Z88.0 Allergy status to penicillin; Z88.8 Allergy status to other drugs, medicaments and biological substances; Z90.49 Acquired absence of other specified parts of digestive tract; Z90.710 Acquired absence of both cervix and uterus; Z98.890 Other specified postprocedural states; Z96.651 Presence of right artificial knee joint; Z86.14 Personal history of Methicillin resistant Staphylococcus aureus infection | CPT/HCPCS: 62323; J1030; J1040; Q9965 ==

== ENCOUNTER → 2017-09-26 | Outpatient (CLI) | payer MEDICARE, OTHER | END | disposition home or self-care (01) | LOC: PNCL 10:55 | DX: M51.16 Intervertebral disc disorders with radiculopathy, lumbar region (principal); M48.062 Spinal stenosis, lumbar region with neurogenic claudication | CPT/HCPCS: G0463 ==

== ENCOUNTER → 2017-12-21 | Outpatient (CLI) | payer MEDICARE, OTHER ==
[2016-06-02 09:55] VITALS: BP 109/55
[~2017-12-21] MED LIST changes: +ACET325T9 PO; +ACET650S19 PO; +ASCO10002 PO; +ASCO120P PO; +ASPI325T11 PO; +BISM262T9 PO; +CALC-31 PO; +CALC200T3 PO; +CALC300T5 PO; +CALC600T23 PO; +CEFP200T PO; +CELE200C PO; +CHLO15MO2 PO; +CYAN10002 IJ; +CYAN200014 PO; +CYCL1DRO EACHEYE; +DEXT1DRO7 OP; +DIPH1TAB PO; +DOXY100C2 PO; +ESTR0.3T PO; +FERR325T14 PO; +FURO-68 PO; +GINS100C3 PO; +GLUC1CAP18 PO; +GLUC500T10 PO; +HYDR-971 PO; +IBUP-1060 PO; -IOHEXOL 180 MG/ML 10 ML VIAL.; +LACT1CAP29 PO; +LACT460C PO; +LATA2.5D3 EACHEYE; -LIDOCAINE 1% PF 2 ML VIAL.; +LOPE1LIQ7 PO; +MESA0.372 PO; +MESA800T2 PO; +METH-37 PO; +MINE3.5O31 EACHEYE; +MOME45CR2 TP; +MULT-18 PO; +NYST1POW2 PO; +OMEG-168 PO; +POTA20TA12 PO; +PROP10DR2 OP; +RANI300T3 PO; +SULF-143 PO; +SULF1TAB23 PO; +SULF500T7 PO; +TIMO5DRO26 EACHEYE; +TIMO5DRO5 EACHEYE; +TROL177. TP; +WARF-78 PO; +[UNRECOGNIZED DRUG - CODE] MC; +[UNRECOGNIZED DRUG - CODE] MC; +[UNRECOGNIZED DRUG - CODE] MC; +[UNRECOGNIZED DRUG - CODE] PO; -methylPREDNISolone ACETATE 40 MG/ML VIAL.; -methylPREDNISolone ACETATE 80 MG/ML VIAL.
--- NOTE | 2017-12-21 15:42 | KCIC ---
MRI of the lumbar spine without contrast 12/21/2017 CLINICAL HISTORY: Chronic low back pain. TECHNIQUE: Unenhanced T1-weighted and T2-weighted sagittal and axial and inversion recovery sagittal images of the lumbar spine were obtained. FINDINGS: Comparison study is dated 06/05/2015. Minimal S-shaped curvature of the thoracolumbar spine is seen. Mild anterolisthesis of L3 in relation to L4 and L4 in relation to L5 is noted. Degenerative signal changes are seen involving all of the disks of the lumbar spine. Degenerative signal changes are seen within the marrow surrounding these discs. The conus medullaris is normal in position and signal characteristics. A 5 mm rounded high signal intensity lesion is seen involving the lower pole of the right kidney on the T2-weighted images. This likely represents a cyst. At the L1-2 disc space there is a mild generalized disc bulge. Degenerative changes are seen involving the facet joints bilaterally. These findings do not result in significant central spinal canal or neural foraminal stenosis. At the L2-3 disc space there is a mild to moderate generalized disc bulge. This is eccentric to the left. Degenerative changes are seen involving the facet joints bilaterally. There is moderate ligamentum flavum hypertrophy bilaterally. These findings when combined result in mild to moderate central spinal canal stenosis. Mild bilateral neural foraminal stenosis is seen. At the L3-4 disc space there is a moderate generalized disc bulge. Degenerative changes are seen involving the facet joints bilaterally. There is moderate ligamentum flavum hypertrophy bilaterally. Small facet joint effusions are seen. These findings when combined result in mild to moderate central spinal canal stenosis. Mild to moderate bilateral neural foraminal stenosis is seen. At the L4-5 disc space there is a mild generalized disc bulge. Degenerative changes are seen involving the facet joints bilaterally. There is moderate ligamentum flavum hypertrophy bilaterally. These findings when combined do not result in significant central spinal canal stenosis. Mild bilateral neural foraminal stenosis is seen. At the L5-S1 disc space there is a mild to moderate generalized disc bulge. This is eccentric to the left. Degenerative changes are seen involving the facet joints bilaterally. There is mild ligamentum flavum hypertrophy bilaterally. These findings when combined do not result in significant central spinal canal stenosis. No neural foraminal stenosis is seen. Since the previous examination there has been no significant interval change. IMPRESSION: The changes of degenerative disc disease are seen throughout the lumbar spine. These findings result in mild to moderate central spinal canal stenosis at L2-3 and L3-4. Mild bilateral neural foraminal stenosis is seen at L2-3 and L4-5. Mild to moderate bilateral neural foraminal stenosis is seen at L3-4. Electronically signed by: Darrell Maguire MD (12/21/2017 3:39 PM) [id number]
--- NOTE | 2017-12-21 16:31 | KCIC ---
EXAM: Lumbar spine 4 views with flexion/extension. HISTORY: Lumbar stenosis, spondylolisthesis. COMPARISON: None. FINDINGS: Lateral and flexion/extension views of the lumbar spine are obtained. While supine, there is mild grade 1 anterolisthesis at L3-L5. While standing in flexion, most of the motion appears to be at the hips. Listhesis increases and measures 1 cm at each level. On extension and reduces slightly to 9 mm and 8 mm at L3-4 and L4-5, respectively. Degenerative disc disease is moderate to severe from L4 through S1 and mild at L3-4. No fractures are identified. Degenerative disc disease is moderate to severe from L3 through S1. IMPRESSION: 1. Mild grade 1 anterolisthesis from L3 through L5 increases while standing and reduces slightly on extension. This appears to be secondary to severe facet osteoarthritis. 2. Degenerative disc disease is moderate to severe from L3 through S1. Electronically signed by: Rosalba Cates MD (12/21/2017 4:28 PM) [facility]
== END | disposition home or self-care (01) ==
LOC: KCIC MRI 13:20
PROVIDERS: ATTEND Neurological Surgery
DX: M51.37 Other intervertebral disc degeneration, lumbosacral region (principal); M48.061 Spinal stenosis, lumbar region without neurogenic claudication; M43.16 Spondylolisthesis, lumbar region
CPT/HCPCS: 72100; 72148

== ENCOUNTER → 2018-01-04 | Outpatient (CLI) | payer MEDICARE, OTHER ==
[2016-06-02 09:55] VITALS: BP 109/55
[~2018-01-04] MED LIST changes: +ACET650S PO; -ACET650S19 PO
--- NOTE | 2018-01-04 16:30 | KCIC ---
History: Postmenopausal, osteoporosis screening, black female. Comparison: None. Findings: Bone Densitometry was performed with dual photon absorption of the lumbar spine and left hip. Lumbar Spine: Bone density is 1.271 g/cm2 for L1-L4. T-Score is 2.1. Z-score is 3.7. Left hip: Bone density is 0.820 g/cm2. T-Score is -1.0. Z-score is -0.1. IMPRESSION: Bone mineral density of the lumbar spine and left hip appears within normal limits. World Health definition of osteoporosis and osteopenia: Normal = T-Score at or above -1.0; osteopenia = T-score between -1.0 and -2.5; osteoporosis = T-score at or below -2.5 Electronically signed by: Sam Salguero MD (01/04/2018 4:28 PM) [facility]
== END | disposition home or self-care (01) ==
LOC: KCIC DEXA 14:22
PROVIDERS: ATTEND Neurological Surgery
DX: M81.0 Age-related osteoporosis without current pathological fracture (principal)
CPT/HCPCS: 77080

== ENCOUNTER → 2018-07-21 | Outpatient (CLI) | payer MEDICARE, OTHER ==
[2016-06-02 09:55] VITALS: BP 109/55
[~2018-07-21] MED LIST changes: +HYDR-3164 PO; -HYDR-971 PO
--- NOTE | 2018-07-22 08:36 | KCIC ---
MRI of the lumbar spine without contrast 07/21/2018 CLINICAL HISTORY: Chronic low back pain with bilateral leg pain. TECHNIQUE: Unenhanced T1-weighted and T2-weighted sagittal and axial and inversion recovery sagittal images of the lumbar spine were obtained. FINDINGS: Comparison study is dated 12/21/2017. Minimal S-shaped curvature of the thoracolumbar spine is seen. Mild anterolisthesis of L3 in relation to L4 and L4 in relation to L5 is again noted. Degenerative signal changes are seen involving all of the disks of the lumbar spine. Degenerative signal changes are seen within the marrow surrounding these discs. The conus medullaris is normal morphology, position, and signal characteristics. A 6 mm rounded high signal intensity lesion is seen involving the midpole of the left kidney on the T2-weighted images. A 5 mm rounded low-attenuation lesion is involving the lower pole of the right kidney on the T2-weighted images. These likely represent cysts. At the L1-2 disc space there is a mild generalized disc bulge. Degenerative changes are seen involving the facet joints bilaterally. These findings do not result in significant central spinal canal or neural foraminal stenosis. At the L2-3 disc space there is a mild to moderate generalized disc bulge. This is eccentric to the left. Degenerative changes are seen involving the facet joints bilaterally. There is moderate ligamentum flavum hypertrophy bilaterally. These findings when combined result in mild to moderate central spinal canal stenosis. Mild bilateral neural foraminal stenosis is seen. At the L3-4 disc space there is a moderate generalized disc bulge. Degenerative changes are seen involving the facet joints bilaterally. There is moderate ligamentum flavum hypertrophy bilaterally. Small facet joint effusions are seen bilaterally. These findings when combined result in mild to moderate central spinal canal stenosis. Mild to moderate bilateral neural foraminal stenosis is seen. At the L4-5 disc space there is a mild generalized disc bulge. Degenerative changes are seen involving the facet joints bilaterally. There is moderate ligamentum flavum hypertrophy bilaterally. These findings when combined do not result in significant central spinal canal stenosis. Mild bilateral neural foraminal stenosis is seen. At the L5-S1 disc space there is a mild to moderate generalized disc bulge. This is eccentric to the left. Degenerative changes are seen involving the facet joints bilaterally. There is mild to moderate ligamentum flavum hypertrophy bilaterally. These findings do not result in significant central spinal canal stenosis. No neural foraminal stenosis is seen. Since the previous examination there has been no significant interval change. IMPRESSION: The changes of degenerative disc disease are seen throughout the lumbar spine. These findings result in mild to moderate central spinal canal stenosis at L2-3 and L3-4 and mild to moderate bilateral neural foraminal stenosis is seen at L3-4. Mild bilateral neural foraminal stenosis is seen at L2-3 and L4-5. Electronically signed by: Darrell Maguire MD (07/22/2018 8:33 AM) [facility]
== END | disposition home or self-care (01) ==
LOC: KCIC MRI 13:32
PROVIDERS: ATTEND Neurological Surgery
DX: M51.36 Other intervertebral disc degeneration, lumbar region (principal); M48.061 Spinal stenosis, lumbar region without neurogenic claudication; M47.817 Spondylosis without myelopathy or radiculopathy, lumbosacral region; M89.38 Hypertrophy of bone, other site; M25.48 Effusion, other site; G89.29 Other chronic pain
CPT/HCPCS: 72148

== ENCOUNTER 2018-09-25 10:30 | Inpatient (IN) | payer MEDICARE, OTHER ==
[~2018-09-25] VITALS: Ht 167.6 cm; Wt 111.6 kg
[2018-11-20] MEDS ORDERED: HYPR10GE OU (11:51)
[2018-11-20] MEDS ORDERED: ASPI-630 PO (11:51)
[2018-11-20] MEDS ORDERED: FLUT16SP NS (11:51)
[2018-11-20] MEDS ORDERED: CETI10TA22 PO (11:51)
[2018-11-20] MEDS ORDERED: MESA0.372 PO (11:51)
--- NOTE | 2018-12-01 17:51 | HP ---
ADMIT DATE: 12/04/2018 DATE OF SURGERY: 12/04/2018 HISTORY OF PRESENT ILLNESS: The patient is a pleasant 73-year-old who continues to have significant low back pain and pain which radiates into both of her legs. The left leg is more involved than the right. The pain tends to radiate down the lateral thighs and legs. She notes significant pain as well. This problem has been more severe over the last year. She rates her pain as a 4/10. Standing and walking markedly increase her pain. Sitting helps her. She is taking Celebrex and Tylenol. She has had epidural steroid injections in the fall of 2018 without help. She has had physical therapy in the past without significant benefit. In the past when I have seen her, I recommended surgery which would include decompression at L3-4 and L4-5. She also has spondylolisthesis with motion at L3-4 and L4-5. PAST MEDICAL HISTORY: Anemia, arthritis, artificial joint, blood clots, cold sores or fever blisters, excessive bleeding, hypertension, lung disease, MRSA infection, serious infection, stomach or intestinal disease, swelling of limbs, wound infection, diabetes, pulmonary hypertension, chronic diarrhea, and diverticulosis. PAST SURGICAL HISTORY: Hysterectomy in 1985, abdominal hernia x 2 in 1989, abdominal hernia in 2008, abdominal abscess in 2010, staph infection in 2010, bowel resection in 2013, cholecystectomy in 2013, right knee replacement in 2014, and posterior cervical surgery with Dr. Lin at in 2015. FAMILY HISTORY: Bleeding problems, cancer, diabetes, heart disease, hypertension, and spine problems. SOCIAL HISTORY: Retired. . Quit smoking 30 years ago. Quit drinking 25 years ago. ALLERGIES: MORPHINE, OXYCODONE, AND OXYCONTIN. CURRENT MEDICATIONS: Cyanocobalamin, ferrous sulfate, furosemide, ginseng, glucosamine, loperamide, dicyclomine, potassium chloride, propylene glycol, Zantac, sulfamethoxazole, latanoprost, celecoxib, ascorbic acid, aspirin, calcium carbonate, Centrum Silver, cyclosporine, fish oil, fluticasone propionate, Imodium A-D, Mylanta, sulfasalazine, Tylenol, and Celebrex. REVIEW OF SYSTEMS: A 12-point review of systems was obtained and is noncontributory except that mentioned above. PHYSICAL EXAMINATION: NEUROSURGERY EXAMINATION: GENERAL APPEARANCE: Alert, pleasant, and no acute distress. HEAD: Normocephalic and atraumatic. SKIN: Warm and dry. MUSCULOSKELETAL: Lumbar paraspinal muscle bulk is normal, restricted range of motion of lumbar spine, [id number] tenderness of lower lumbar spine with palpation, and normal range of motion of the lower extremities bilaterally. EXTREMITIES: No clubbing, cyanosis, or edema. NEUROLOGIC: Alert and oriented x 3. Normal recent and remote memory. Strength 5/5 in bilateral lower extremities. Sensory is intact to light touch in lower extremities bilaterally. Reflexes are present and symmetric in bilateral lower extremities. Negative straight leg raising bilaterally. Ambulates with a cane. IMAGING: Imaging studies show spondylolisthesis at L3-4 and L4-5. On flexion and extension films, there is significant motion at these levels. Additionally, she has a trefoil-shaped canal with stenosis at these levels. ASSESSMENT: 1. Spinal stenosis, lumbar region with neurogenic claudication. 2. Spondylolisthesis, lumbar region. PLAN: At this time, my recommendation remains a left direct laminectomy at L3-4 and L4-5 combined with posterior instrumentation at L3, L4, and L5 and posterolateral fusion. I did again discuss all this with her including the technique, risks, and expected postoperative course. She would like to go ahead. We will make the arrangements. OBDULIO WAYNE MD DR: TONYA/leidy JOB#: [id number] / [id number] [facility]
[2018-12-03] MEDS ORDERED: BUPIVACAINE-EPI 0.5%-1:200000 MPF 30 ML VIAL. INJ ONE (10:00)
[2018-12-04] VITALS (9 sets, daily range): BP systolic 118–155; BP diastolic 67–82
[2018-12-04] MEDS ORDERED: VANCOMYCIN 1GM IVPB FOR OMNI 250 ML IV PRN (06:00)
[2018-12-04] MEDS ORDERED: BACITRACIN 50,000 UNIT in IV NORMAL SALINE 1000ML BAG 1,000 ML IRR ONE (06:00)
[2018-12-04] MEDS ORDERED: KETOROLAC 60 MG/2 ML VIAL. ONE (06:41)
[2018-12-04] MEDS ORDERED: THROMBIN TOPICAL 20,000 UNIT SPRAY.SYRN KIT TP ONE (06:41)
[2018-12-04] MEDS ORDERED: GELATIN SPONGE SIZE 12-7MM SPONGE. ONE (06:41)
[2018-12-04] MEDS ORDERED: ONDANSETRON PF 4 MG/2 ML VIAL. IV PRN ×2 (07:00→14:15)
[2018-12-04] MEDS ORDERED: IV RINGERS,LACTATED 1000ML 1,000 ML IV SCH (07:00)
[2018-12-04] MEDS ORDERED: LIDOCAINE 1% PF 2 ML VIAL. ID PRN (07:00)
[2018-12-04] MEDS ORDERED: PROCHLORPERAZINE 10 MG/2 ML VIAL. IV PRN (07:00)
[2018-12-04] MEDS ORDERED: fentaNYL PF VIAL 100 MCG/2 ML VIAL IV PRN ×2 (07:00→14:15)
[2018-12-04] MEDS ORDERED: BUPIVACAINE-EPI 0.5%-1:200000 MPF 30 ML VIAL. INJ ONE (08:00)
[2018-12-04] MEDS ORDERED: SCOPOLAMINE 1.5MG PATCH. TD ONE (08:03)
[2018-12-04] MEDS ORDERED: DEXAMETHASONE SOD PHOS 20 MG/5 ML VIAL. ONE (08:05)
[2018-12-04] MEDS ORDERED: PROPOFOL 20 ML IV ONE (08:05)
[2018-12-04] MEDS ORDERED: LIDOCAINE 2% PF 5 ML VIAL. ONE (08:05)
[2018-12-04] MEDS ORDERED: ONDANSETRON PF 4 MG/2 ML VIAL. ONE ×2 (08:05→14:31)
[2018-12-04] MEDS ORDERED: PROPOFOL 50 ML IV ONE ×2 (08:05→14:08)
[2018-12-04] MEDS ORDERED: REMIFENTANIL 2 MG VIAL. IV ONE ×2 (08:06→11:37)
[2018-12-04] MEDS ORDERED: PHENYLEPHRINE 10 MG/ML VIAL. ONE (08:06)
[2018-12-04] MEDS ORDERED: ROCURONIUM 50 MG/5 ML VIAL. ONE (08:06)
[2018-12-04] MEDS ORDERED: 0.9 % SODIUM CHLORIDE 20 ML VIAL. IJ ONE ×2 (08:06→08:21)
[2018-12-04] MEDS: SCOPOLAMINE 1.5MG PATCH. TD ONE ×2 (08:09→08:15)
[2018-12-04] MEDS ORDERED: GLYCOPYRROLATE 1 MG/5 ML VIAL. ONE (08:18)
[2018-12-04] MEDS ORDERED: MINERAL OIL/PETROLATUM,WHITE OPHTH OINT 3.5GM TUBE. ONE (08:21)
--- NOTE | 2018-12-04 09:05 | RAD ---
Examination: CT LUMBAR SPINE WO CONTRAST History: Lumbar radiculopathy Comparison/Correlation: 07/21/2018 lumbar spine MRI without contrast Findings: Axial images of the lumbar spine were obtained without contrast. Sagittal and coronal reformatted images were provided. T12-L1: Unremarkable L1-L2: Slight concentric disc bulge. Moderate spinal canal stenosis. L2-3: Ligamentum flavum hypertrophy and concentric disc bulge are present with severe spinal canal stenosis. L3-4: Anterolisthesis of L3 over L4 is 0.7 cm. Vacuum phenomenon is noted. Mild disc space narrowing. Spinal canal stenosis. Bilateral neural foraminal stenosis without nerve root effacement. Severe spinal canal stenosis. L4-5: Anterolisthesis of L4 over L5 is 0.9 cm. Mild vacuum phenomenon is present. Disc space narrowing is present. Bilateral neural foraminal stenosis without nerve root effacement. Moderate to severe spinal canal stenosis. L5-S1: Vacuum phenomenon at L5-S1 is present. Bilateral neural foraminal stenosis without nerve root effacement. Facet joint degenerative remodeling of the lumbar spine is present. Bone island is noted involving the spinous process of L3 measuring up to 0.8 cm diameter. Impression: Multilevel disc space narrowing, neural foraminal stenoses and spinal canal stenoses. Malalignment again seen. No significant changes compared to the previous MRI exam of 07/21/2018. PQRS Compliance Statement: One or more of the following individualized dose reduction techniques were utilized for this examination: 1. Automated exposure control 2. Adjustment of the mA and/or kV according to patient size 3. Use of iterative reconstruction technique Electronically signed by: Anthony Ojeda MD (12/04/2018 9:02 AM) [facility]
[2018-12-04] MEDS ORDERED: PROPOFOL 300 ML IV ONE (09:24)
[2018-12-04] MEDS ORDERED: GELATIN SPONGE SIZE 12-7MM SPONGE. TP ONE ×3 (09:51)
[2018-12-04] MEDS ORDERED: DESFLURANE > 120 MINUTES IH ONE (10:54)
[2018-12-04] MEDS ORDERED: CALCIUM CARBONATE 500 MG TAB.CHEW PO PRN (14:15)
[2018-12-04] MEDS ORDERED: MAGNESIUM HYDROXIDE 2,400 MG/30 ML ORAL.SUSP. PO PRN (14:15)
[2018-12-04] MEDS ORDERED: MAG HYDROX/ALUMINUM HYD/SIMETH 30 ML ORAL.SUSP PO PRN (14:15)
[2018-12-04] MEDS ORDERED: ACETAMINOPHEN 325 MG TABLET. PO PRN ×2 (14:15)
[2018-12-04] MEDS ORDERED: LOPERAMIDE 2 MG/15 ML ORAL SUSP. PO PRN (14:15)
[2018-12-04] MEDS ORDERED: 0.9 % SODIUM CHLORIDE 10 ML DISP.SYRIN. IV PRN (14:15)
[2018-12-04] MEDS ORDERED: NALOXONE 0.4 MG/ML VIAL. IV PRN (14:15)
[2018-12-04] MEDS ORDERED: MESALAMINE PO SCH (14:15)
[2018-12-04] MEDS ORDERED: diphenhydrAMINE 50 MG/ML VIAL ONE (14:27)
[2018-12-04] MEDS: fentaNYL PF VIAL 100 MCG/2 ML VIAL IV PRN ×2 (15:41→16:07)
[2018-12-04] MEDS: HYDROcodone/APAP 5/325MG 1 TAB TABLET PO PRN ×2 (17:55→22:23)
[2018-12-04] MEDS: diphenhydrAMINE HCL 25 MG CAPSULE PO PRN (17:55)
[2018-12-04] MEDS: POTASSIUM CL 20MEQ D5-0.45NACL 1,000 ML IV SCH (20:58)
[2018-12-04] MEDS: CHLORHEXIDINE 0.12% 15 ML MOUTHWASH. SWSP SCH (20:58)
[2018-12-04] MEDS: CETIRIZINE HCL 10 MG TABLET. PO SCH (20:58)
[2018-12-04] MEDS: DOCUSATE SODIUM 100 MG CAPSULE. PO SCH (20:58)
[2018-12-04] MEDS: FAMOTIDINE 20 MG TABLET. PO SCH (20:59)
[2018-12-04] MEDS: sulfaSALAzine 500 MG TABLET PO SCH (20:59)
[2018-12-04] MEDS ORDERED: VANCOMYCIN 1 GM in IV NORMAL SALINE 250ML 250 ML IV ONE (21:00)
[2018-12-04] MEDS: MINERAL OIL/PETROLATUM,WHITE OPHTH OINT 3.5GM TUBE. OU SCH (21:40)
[2018-12-04] MEDS: cycloSPORINE 0.05% OPHTH DROPERETTE. OU SCH (21:40)
[2018-12-04] MEDS: POLYVINYL ALCOHOL 1.4% OPHTH SOLUTION 15ML BOTTLE. OU SCH (22:04)
[2018-12-05 02:48] VITALS: BP 110/59
[2018-12-05] MEDS: POTASSIUM CL 20MEQ D5-0.45NACL 1,000 ML IV SCH ×2 (03:13→19:22)
[2018-12-05] MEDS: HYDROcodone/APAP 5/325MG 1 TAB TABLET PO PRN ×5 (03:13→20:08)
[2018-12-05 06:34] VITALS: BP 113/55
[2018-12-05] MEDS: ASPIRIN CHEWABLE 81 MG TABLET. PO SCH (07:47)
[2018-12-05] MEDS: CHLORHEXIDINE 0.12% 15 ML MOUTHWASH. SWSP SCH ×2 (07:47→20:06)
[2018-12-05] MEDS: CALCIUM CARBONATE 500 MG TABLET PO SCH (07:47)
[2018-12-05] MEDS: diphenhydrAMINE HCL 25 MG CAPSULE PO PRN (07:47)
[2018-12-05] MEDS: MULTIVITAMIN with MINERAL TABLET. PO SCH (07:47)
[2018-12-05] MEDS: DOCUSATE SODIUM 100 MG CAPSULE. PO SCH ×2 (07:47→20:05)
[2018-12-05] MEDS: OMEGA-3 FATTY ACIDS/FISH OIL 1,000 MG CAPSULE. PO SCH (07:47)
[2018-12-05] MEDS: LACTOBACILLUS RHAMNOSUS GG 1 CAPSULE. PO SCH ×2 (07:47→20:05)
[2018-12-05] MEDS: cycloSPORINE 0.05% OPHTH DROPERETTE. OU SCH ×2 (07:48→20:06)
[2018-12-05] MEDS: ASCORBIC ACID 500 MG TABLET PO SCH (07:48)
[2018-12-05] MEDS: MINERAL OIL/PETROLATUM,WHITE OPHTH OINT 3.5GM TUBE. OU SCH ×2 (07:50→20:07)
[2018-12-05] MEDS: POLYVINYL ALCOHOL 1.4% OPHTH SOLUTION 15ML BOTTLE. OU SCH (07:51)
[2018-12-05] MEDS: METHOCARBAMOL 750 MG TABLET PO PRN (07:56)
[2018-12-05] MEDS: sulfaSALAzine 500 MG TABLET PO SCH ×2 (08:24→20:05)
[2018-12-05] MEDS: FLUTICASONE 50MCG/NASAL SPRAY 16GM BOTTLE. NS SCH (08:29)
[2018-12-05] MEDS ORDERED: NON FORMULARY ITEM (Gluc Hcl/Csa/Coll Hy/Hyalur Ac (Glucosamine Chondroitin Cap) 1 EACH) PO SCH (09:00)
[2018-12-05 10:47] VITALS: BP 116/68
--- NOTE | 2018-12-05 14:20 | PDOC ---
PROGRESS NOTES Subjective Subjective POD #1 up in chair leg pain improved back/ incisional pain, controlled with medication ambulated with PT Objective Objective Vital Signs Date Time Temp Pulse Resp B/P (MAP) Pulse Ox O2 Delivery O2 Flow Rate FiO2 12/05/18 11:29 20 Room Air 12/05/18 10:47 98.7 83 116/68 (84) 100 98.7 12/05/18 05:42 10.0 Intake and Output 12/05/18 07:00 Intake Total 4480 ml Output Total 1925 ml Balance 2555 ml Intake Oral 480 ml IV Total 4000 ml Output Urine Total 1775 ml Estimated Blood Loss 150 ml Physical Exam General: Alert, Oriented X3, Cooperative, No acute distress MUSCULOSKELETAL: Other (CUELLAR) Neuro: Normal speech Skin: Other (Dressing dry and intact) Plan Plan of Care encouraged increased activity as tolerated PT will likely need rehab Comment Review of Relevant I have reviewed the following items yanet (where applicable) has been applied. Medications Current Medications Ondansetron HCl (Zofran) 4 mg PRN Q6HRS PRN IV NAUSEA/VOMITING; Start 12/04/18 at 07:00; Stop 12/04/18 at 16:52; Status DC Fentanyl Citrate (Fentanyl 2ml Vial) 25 mcg PRN Q5MIN PRN IV MILD PAIN 1-3; Start 12/04/18 at 07:00; Stop 12/04/18 at 16:52; Status DC Fentanyl Citrate (Fentanyl 2ml Vial) 50 mcg PRN Q5MIN PRN IV MODERATE TO SEVERE PAIN Last administered on 12/04/18at 16:07; Start 12/04/18 at 07:00; Stop 12/04/18 at 16:52; Status DC Ringer's Solution 1,000 ml @ 30 mls/hr Q24H IV Last administered on 12/04/18at 08:07; Start 12/04/18 at 07:00; Stop 12/04/18 at 16:52; Status DC Lidocaine HCl (Xylocaine-Mpf 1% 2ml Vial) 2 ml PRN 1X PRN ID PRIOR TO IV START; Start 12/04/18 at 07:00; Stop 12/04/18 at 16:52; Status DC Prochlorperazine Edisylate (Compazine) 5 mg PACU PRN PRN IV NAUSEA, MRX1; Start 12/04/18 at 07:00; Stop 12/04/18 at 16:52; Status DC Vancomycin HCl 250 ml @ 250 mls/hr 1X PREOP PRN IV PRIOR TO PROCEDURE Last administered on 12/04/18at 10:11; Start 12/04/18 at 06:00; Stop 12/04/18 at 18:00; Status DC Bacitracin 77132 unit/Sodium Chloride 1,000 ml @ 1,000 mls/hr 1X ONCE IRR Last administered on 12/04/18at 10:15; Start 12/04/18 at 06:00; Stop 12/04/18 at 06:59; Status DC Bupivacaine HCl/ Epinephrine Bitart (Sensorcain-Epi 0.5%-1:935885 Mpf) 30 ml 1X ONCE INJ ; Start 12/03/18 at 10:00; Stop 12/03/18 at 10:01; Status Cancel Bupivacaine HCl/ Epinephrine Bitart (Sensorcain-Epi 0.5%-1:962560 Mpf) 30 ml 1X ONCE INJ Last administered on 12/04/18at 14:27; Start 12/04/18 at 08:00; Stop 12/04/18 at 08:11; Status DC Gelatin (Gelfoam Size 12-7mm) 1 each STK-MED ONCE .ROUTE Last administered on 12/04/18at 10:15; Start 12/04/18 at 06:41; Stop 12/04/18 at 06:41; Status DC Ketorolac Tromethamine (Toradol Im) 60 mg STK-MED ONCE .ROUTE Last administered on 12/04/18at 10:15; Start 12/04/18 at 06:41; Stop 12/04/18 at 06:41; Status DC Thrombin 20,000 unit STK-MED ONCE TP Last administered on 12/04/18at 10:15; Start 12/04/18 at 06:41; Stop 12/04/18 at 06:42; Status DC Scopolamine (Transderm-Scop) 1 patch STK-MED ONCE TD ; Start 12/04/18 at 08:03; Stop 12/04/18 at 08:03; Status DC Propofol 20 ml @ As Directed STK-MED ONCE IV ; Start 12/04/18 at 08:05; Stop 12/04/18 at 08:06; Status DC Dexamethasone Sodium Phosphate (Decadron) 20 mg STK-MED ONCE .ROUTE ; Start 12/04/18 at 08:05; Stop 12/04/18 at 08:06; Status DC Lidocaine HCl (Lidocaine Pf 2% Vial) 5 ml STK-MED ONCE .ROUTE ; Start 12/04/18 at 08:05; Stop 12/04/18 at 08:06; Status DC Ondansetron HCl (Zofran) 4 mg STK-MED ONCE .ROUTE ; Start 12/04/18 at 08:05; Stop 12/04/18 at 08:06; Status DC Propofol 50 ml @ As Directed STK-MED ONCE IV ; Start 12/04/18 at 08:05; Stop 12/04/18 at 08:06; Status DC Rocuronium [place] (Zemuron) 50 mg STK-MED ONCE .ROUTE ; Start 12/04/18 at 08:06; Stop 12/04/18 at 08:06; Status DC Remifentanil HCl (Ultiva) 2 mg STK-MED ONCE IV ; Start 12/04/18 at 08:06; Stop 12/04/18 at 08:06; Status DC Phenylephrine HCl (Tobias-Synephrine Inj) 10 mg STK-MED ONCE .ROUTE ; Start 12/04/18 at 08:06; Stop 12/04/18 at 08:06; Status DC Sodium Chloride (SODIUM CHLORIDE 20ml) 20 ml STK-MED ONCE IJ ; Start 12/04/18 at 08:06; Stop 12/04/18 at 08:06; Status DC Scopolamine (Transderm-Scop) 1 patch 1X ONCE TD Last administered on 12/04/18at 12:51; Start 12/04/18 at 08:15; Stop 12/04/18 at 08:16; Status DC Glycopyrrolate (Robinul) 1 mg STK-MED ONCE .ROUTE ; Start 12/04/18 at 08:18; Stop 12/04/18 at 08:18; Status DC Multi-Ingred Cream/Lotion/Oil/ Oint (Artificial Tears Eye Ointment) 7 nelda STK- MED ONCE .ROUTE ; Start 12/04/18 at 08:21; Stop 12/04/18 at 08:21; Status DC Sodium Chloride (SODIUM CHLORIDE 20ml) 20 ml STK-MED ONCE IJ ; Start 12/04/18 at 08:21; Stop 12/04/18 at 08:21; Status DC Propofol 300 ml @ As Directed STK-MED ONCE IV ; Start 12/04/18 at 09:24; Stop 12/04/18 at 09:25; Status DC Gelatin (Gelfoam Size 12-7mm) 1 each STK-MED ONCE TP Last administered on 12/04/18at 10:15; Start 12/04/18 at 09:51; Stop 12/04/18 at 10:15; Status DC Gelatin (Gelfoam Size 12-7mm) 1 each STK-MED ONCE TP Last administered on 12/04/18at 10:15; Start 12/04/18 at 09:51; Stop 12/04/18 at 10:15; Status DC Gelatin (Gelfoam Size 12-7mm) 1 each STK-MED ONCE TP Last administered on 12/04/18at 10:15; Start 12/04/18 at 09:51; Stop 12/04/18 at 10:15; Status DC Desflurane (Suprane) 90 ml STK-MED ONCE IH ; Start 12/04/18 at 10:54; Stop 12/04/18 at 10:54; Status DC Remifentanil HCl (Ultiva) 2 mg STK-MED ONCE IV ; Start 12/04/18 at 11:37; Stop 12/04/18 at 11:37; Status DC Propofol 50 ml @ As Directed STK-MED ONCE IV ; Start 12/04/18 at 14:08; Stop 12/04/18 at 14:08; Status DC Acetaminophen (Tylenol) 650 mg BID PRN PO PAIN; Start 12/04/18 at 14:15; Status UNV Aspirin (Children'S Aspirin) 81 mg DAILY PO Last administered on 12/05/18at 07:52; Start 12/05/18 at 09:00 Cetirizine HCl (ZyrTEC) 10 mg HS PO Last administered on 12/04/18at 21:00; Start 12/04/18 at 21:00 Chlorhexidine Gluconate (Peridex) 15 ml BID SWSP Last administered on 12/05/18at 07:52; Start 12/04/18 at 21:00 Cyclosporine (Restasis) 1 drop BID OU Last administered on 12/05/18 07:52; S tart 12/04/18 at 21:00 Loperamide HCl (Immodium Oral Susp) 1 mg PRN DAILY PRN PO DIARRHEA; Start 12/04/18 at 14:15 Sulfasalazine (Azulfidine) 500 mg BID PO Last administered on 12/05/18 08:24; Start 12/04/18 at 21:00 Ascorbic Acid (Vitamin C) 1,000 mg DAILY PO Last administered on 12/05/18 07:52; Start 12/05/18 at 09:00 Calcium Carbonate/ Glycine (Oscal) 500 mg DAILY PO Last administered on 12/05/18 07:52; Start 12/05/18 at 09:00 Non-Formulary Medication (Gluc Hcl/Csa/ Vazquez Hy/Hyalur Ac (Glucosamine C hondroitin Cap)) 1 each DAILY PO ; Start 12/05/18 at 09:00; Status UNV Artificial Tears (Artificial Tears) 1 drop QHS OU Last administered on 12/05/18 07:52; Start 12/04/18 at 21:00 Lactobacillus Rhamnosus (Culturelle) 1 cap BID PO Last administered on 12/05/18 07:52; Start 12/05/18 at 09:00 Non-Formulary Medication (Mesalamine (Apriso)) 4 cap UD PO ; Start 12/04/18 at 14:15; Stop 12/05/18 at 07:11; Status DC Multi-Ingred Cream/Lotion/Oil/ Oint (Artificial Tears Eye Ointment) 1 nelda BID OU Last administered on 12/05/18 07:52; Start 12/04/18 at 21:00 Multivitamins (Thera M Plus) 1 tab DAILY PO Last administered on 12/05/18 0 7:52; Start 12/05/18 at 09:00 Fish Oil (Fish Oil) 1,000 mg DAILY PO Last administered on 12/05/18 07:52; Start 12/05/18 at 09:00 Famotidine (Pepcid) 40 mg QHS PO Last administered on 12/04/18 21:00; Start 12/04/18 at 21:00 Fluticasone Propionate (Flonase) 1 spray DAILY NS Last administered on 12/05/18 08:30; Start 12/05/18 at 09:00 Fentanyl Citrate (Fentanyl 2ml Vial) 50 mcg PRN Q2HR PRN IV PAIN; Start 12/04/18 at 14:15 Vancomycin HCl 1 gm/Sodium Chloride 250 ml @ 250 mls/hr 1X ONCE IV Last administered on 12/04/18at 21:00; Start 12/04/18 at 21:00; Stop 12/04/18 at 21:59; Status DC Acetaminophen (Tylenol) 650 mg PRN Q6HRS PRN PO MILD PAIN / TEMP; Start 12/04/18 at 14:15 Al Hydroxide/Mg Hydroxide (Mylanta Plus Xs) 30 ml PRN Q3HRS PRN PO HEARTBURN / GAS; Start 12/04/18 at 14:15 Calcium Carbonate/ Glycine (Tums) 500 mg PRN Q3HRS PRN PO INDIGESTION; Start 12/04/18 at 14:15 Diphenhydramine HCl (Benadryl) 25 mg PRN Q6HRS PRN PO ITCHING Last administered on 12/05/18at 07:52; Start 12/04/18 at 14:15 Naloxone HCl (Narcan) 0.1 mg PRN Q2MIN PRN IV ADMIN; Start 12/04/18 at 14:15 Sodium Chloride (Normal Saline Flush) 3 ml QSHIFT PRN IV AFTER MEDS AND BLOOD DRAWS; Start 12/04/18 at 14:15 Potassium Chloride/Dextrose/ Sod Cl 1,000 ml @ 75 mls/hr [id number] IV Last administered on 12/05/18at 03:14; Start 12/04/18 at 16:00 Methocarbamol (Robaxin) 750 mg TID PRN PRN PO MUSCLE SPASMS Last administered on 12/05/18at 07:56; Start 12/04/18 at 14:15 Docusate Sodium (Colace) 100 mg BID PO Last administered on 12/05/18at 07:52; Start 12/04/18 at 21:00 Magnesium Hydroxide (Milk Of Magnesia) 2,400 mg PRN Q12HR PRN PO CONSTIPATION; Start 12/04/18 at 14:15 Ondansetron HCl (Zofran) 4 mg PRN Q6HRS PRN IV NAUESA, 1ST CHOICE Last administered on 12/05/18at 11:48; Start 12/04/18 at 14:15 Diphenhydramine HCl (Benadryl) 50 mg STK-MED ONCE .ROUTE ; Start 12/04/18 at 14:27; Stop 12/04/18 at 14:27; Status DC Ondansetron HCl (Zofran) 4 mg STK-MED ONCE .ROUTE ; Start 12/04/18 at 14:31; Stop 12/04/18 at 14:48; Status DC Acetaminophen/ Hydrocodone Bitart (Lortab 5/325) 1 tab PRN Q4HRS PRN PO PAIN MILD TO MOD Last administered on 12/05/18at 11:29; Start 12/04/18 at 16:45 Acetaminophen/ Hydrocodone Bitart (Lortab 5/325) 2 tab PRN Q4HRS PRN PO PAIN SEVERE; Start 12/04/18 at 16:45 Active Scripts Active Reported Fluticasone Propionate Nasal Ronan (Fluticasone Propionate) 16 Gm Ronan.susp 1 Ronan NS DAILY Apriso (Mesalamine) 0.375 Gm Cap.er.24h 4 Cap PO UD Zyrtec (Cetirizine Hcl) 10 Mg Tablet 10 Mg PO HS Systane Gel (Hypromellose) 10 Gm Gel..gram. 1 Drop OU HS Aspirin 81 Mg Tab.chew 81 Mg PO DAILY Sulfasalazine 500 Mg Tablet 500 Mg PO BID Florajen (Lactobacillus Acidophilus) 460 Mg Capsule 460 Mg PO DAILY Peridex (Chlorhexidine Gluconate) 15 Ml Mouthwash 15 Ml PO BID Celebrex (Celecoxib) 200 Mg Capsule 400 Mg PO DAILY 30 Days Tylenol (Acetaminophen) 325 Mg Tablet 650 Mg PO BID PRN Artificial Tears Eye Oint (Mineral Oil/Petrolatum,White) 3.5 Gm Oint...g. 3.5 Gm EACHEYE BID Fish Oil 1,200 Mg Softgel ([place]-3S/Dha/Epa/Fish Oil) 1 Each Capsule 1 Each PO DAILY Glucosamine Chondroitin Cap (Gluc Hcl/Csa/Vazquez Hy/Hyalur Ac) 1 Each Capsule 1 Each PO DAILY Vitamin C (Ascorbic Acid) 1,000 Mg Tablet 1,000 Mg PO DAILY Calcium Carbonate 600 Mg Tablet 600 Mg PO DAILY Daily Vitamin (Multivitamin) 1 Each Tablet 1 Each PO DAILY Imodium A-D (Loperamide Hcl) 1 Mg/7.5 Ml Liquid 1 Mg PO PRN DAILY Zantac (Ranitidine Hcl) 300 Mg Tablet 300 Mg PO HS Restasis (Cyclosporine) 1 Each Droperette 0.05 % EACHEYE BID Vitals/I & O Vital Sign - Last 24 Hours 12/04/18 12/04/18 12/04/18 12/04/18 14:58 14:58 15:13 15:32 Temp 97.9 97.9 Pulse 71 68 67 Resp 20 20 20 B/P (MAP) 153/69 150/83 153/89 Pulse Ox 100 100 100 O2 Delivery Simple Mask Mask Simple Mask Simple Mask O2 Flow Rate 10 10 10 10 12/04/18 12/04/18 12/04/18 12/04/18 15:41 15:47 16:02 16:07 Pulse 60 68 Resp 22 20 20 20 B/P (MAP) 152/86 153/89 Pulse Ox 100 99 100 99 O2 Delivery Simple Mask Simple Mask Room Air O2 Flow Rate 10.0 10 12/04/18 12/04/18 12/04/18 12/04/18 16:15 16:17 16:30 16:36 Temp 97.4 97.4 Pulse 67 62 64 Resp 18 22 B/P (MAP) 149/79 (102) 152/86 141/82 (101) Pulse Ox 96 97 97 O2 Delivery Room Air Room Air Room Air Room Air 12/04/18 12/04/18 12/04/18 12/04/18 16:45 17:00 17:30 17:59 Pulse 67 67 71 Resp 18 20 B/P (MAP) 133/80 (97) 133/81 (98) 148/80 (102) Pulse Ox 94 O2 Delivery Room Air Room Air Room Air Room Air 12/04/18 12/04/18 12/04/18 12/04/18 18:00 19:02 20:00 20:01 Temp 97.8 97.9 97.8 97.9 Pulse 70 70 71 Resp 18 18 B/P (MAP) 155/81 (105) 146/78 (100) 118/67 (84) Pulse Ox 95 94 97 O2 Delivery Room Air Room Air Room Air Room Air 12/04/18 12/04/18 12/05/18 12/05/18 22:23 22:55 00:37 02:48 Temp 98.0 98.1 98.0 98.1 Pulse 68 73 Resp 18 18 18 18 B/P (MAP) 132/67 (88) 110/59 (76) Pulse Ox 97 97 97 96 O2 Delivery Room Air Room Air Room Air Room Air 12/05/18 12/05/18 12/05/18 12/05/18 03:14 05:42 06:34 07:21 Temp 98.5 98.5 Pulse 76 Resp 18 18 17 B/P (MAP) 113/55 (74) Pulse Ox 97 97 95 O2 Delivery Room Air Room Air Room Air Room Air O2 Flow Rate 10.0 12/05/18 12/05/18 12/05/18 07:52 10:47 11:29 Temp 98.7 98.7 Pulse 83 Resp 20 20 20 B/P (MAP) 116/68 (84) Pulse Ox 100 O2 Delivery Room Air Room Air Room Air Intake and Output 12/04/18 12/04/18 12/05/18 15:00 23:00 07:00 Intake Total 1200 ml 2020 ml 1260 ml Output Total 1350 ml 375 ml 200 ml Balance -150 ml 1645 ml 1060 ml RENÉE BROWNE MONTESSORI [employer] Dec 05, 2018 14:20
[2018-12-05 15:00] VITALS: BP 107/65
[2018-12-05 17:41] VITALS: BP 102/64
[2018-12-05] MEDS: FAMOTIDINE 20 MG TABLET. PO SCH (20:05)
[2018-12-05] MEDS: CETIRIZINE HCL 10 MG TABLET. PO SCH (20:05)
--- NOTE | 2018-12-05 22:17 | CONS ---
DATE OF CONSULTATION: LOCATION: She is in room 452. ATTENDING PHYSICIAN: Dr. Maxim Rashid REASON FOR CONSULTATION: The patient was seen at the request of Dr. Rashid for rehab evaluation. HISTORY OF PRESENT ILLNESS: This is a 73-year-old female with chronic lower back pain with radiation to both lower extremities, left more than right side. The patient had radiological studies, which revealed degenerative disk disease and degenerative joint disease of lumbar vertebrae with lumbar spinal stenosis and spondylolisthesis with motion at L3-L4 and L4-L5. The patient also with known anemia, osteoarthritis, status post bilateral total knee arthroplasty, deep venous thrombosis, hypertension, chronic obstructive pulmonary disease, MRSA, diabetes mellitus, pulmonary hypertension, diverticulosis, status post hysterectomy in 1985. Abdominal hernia repair done twice in 1989 and again in 2008, abdominal abscess 2010, staph infection in 2010, bowel resection in 2013, cholecystectomy in 2013, previous cervical spine surgery by Dr. Lin at in 2015. Dr. Guerrier did the total knee arthroplasties. She denies any pain in her knees. The patient was admitted on 12/04/2018 and she had a decompression laminectomy done. Postop, she admits to some soreness in her back, still admits to some discomfort in her lower extremities, but much better, does not have the sharp pain. FAMILY HISTORY: The patient with family history of bleeding problems, carcinoma, diabetes, heart disease, hypertension and spine. SOCIAL HISTORY: She is retired. Quit smoking about 30 years ago, quit drinking about 25 years ago. , lives alone, had no stairs for her to manage. ALLERGIES: She is known allergic to MORPHINE, OXYCODONE AND OXYCONTIN. The patient admits no difficulty with urination postop, but she does not have any bowel movement yet. PHYSICAL EXAMINATION: Today revealed an elderly female. She is alert, oriented to time, place, person and circumstance and follows commands appropriately, moves all 4 extremities voluntarily where she had 4+/5 grade muscle strength. Deep tendon reflexes are absent at both knees and ankles. She had equal perception of touch and pinprick sensation bilaterally. She requires some assistance with bed mobility and transfers. Once up, she can walk using a roller walker. She gets tired easily. She had some tenderness to palpation over right sacroiliac joint area. Straight leg raising test is negative bilaterally. She is obese. ASSESSMENT: 1. Postop lumbar decompression laminectomy for treatment of lumbar spinal stenosis with neurogenic claudication. 2. Diabetes mellitus with peripheral neuropathy. 3. Obesity. 4. Coronary artery disease, hypertension. RECOMMENDATIONS: Agree with the plan for physical therapy and occupational therapy and to screen for transfer to residential care unit and transfer to residential care unit when medically stable for continued care before she can return home as she lives alone. Dr. Rashid, I appreciate asking me to participate in the care of this interesting patient. I will be glad to follow her with you as needed for her rehabilitation. MARGY RAMOS MD DR: VIOLET/nts JOB#: [id number] / [id number]
[2018-12-05 22:30] VITALS: BP 99/58
[2018-12-06] VITALS (7 sets, daily range): BP systolic 95–135; BP diastolic 54–72
[2018-12-06] MEDS: HYDROcodone/APAP 5/325MG 1 TAB TABLET PO PRN ×4 (01:18→17:59)
[2018-12-06] MEDS: ASCORBIC ACID 500 MG TABLET PO SCH (07:59)
[2018-12-06] MEDS: CHLORHEXIDINE 0.12% 15 ML MOUTHWASH. SWSP SCH ×2 (07:59→20:26)
[2018-12-06] MEDS: CALCIUM CARBONATE 500 MG TABLET PO SCH (07:59)
[2018-12-06] MEDS: DOCUSATE SODIUM 100 MG CAPSULE. PO SCH ×2 (07:59→20:26)
[2018-12-06] MEDS: LACTOBACILLUS RHAMNOSUS GG 1 CAPSULE. PO SCH ×2 (07:59→20:25)
[2018-12-06] MEDS: sulfaSALAzine 500 MG TABLET PO SCH ×2 (07:59→20:25)
[2018-12-06] MEDS: OMEGA-3 FATTY ACIDS/FISH OIL 1,000 MG CAPSULE. PO SCH (07:59)
[2018-12-06] MEDS: MULTIVITAMIN with MINERAL TABLET. PO SCH (07:59)
[2018-12-06] MEDS: cycloSPORINE 0.05% OPHTH DROPERETTE. OU SCH ×2 (07:59→20:27)
[2018-12-06] MEDS: ASPIRIN CHEWABLE 81 MG TABLET. PO SCH (07:59)
[2018-12-06] MEDS: FLUTICASONE 50MCG/NASAL SPRAY 16GM BOTTLE. NS SCH (08:01)
[2018-12-06] MEDS: MINERAL OIL/PETROLATUM,WHITE OPHTH OINT 3.5GM TUBE. OU SCH ×2 (08:01→20:26)
--- NOTE | 2018-12-06 09:43 | PDOC ---
PROGRESS NOTES Subjective Subjective She admits less pain in her low back. Objective Objective Vital Signs Date Time Temp Pulse Resp B/P (MAP) Pulse Ox O2 Delivery O2 Flow Rate FiO2 12/06/18 08:50 Room Air 12/06/18 08:01 95 12/06/18 07:00 99.6 96 16 104/54 (71) 99.6 12/05/18 15:36 10.0 Intake and Output 12/06/18 06:59 Intake Total 400 ml Balance 400 ml Intake Oral 400 ml # Voids 4 Physical Exam Physical Exam She is sitting in bedside chair and is comfortable and she is participating with therapy. Assessment Assessment Problems Medical Problems: (1) CAD (coronary artery disease) Status: Chronic (2) Diabetic peripheral neuropathy Status: Chronic (3) HTN (hypertension) Status: Chronic (4) Obesity Status: Chronic Plan Plan of Care To SNF when arrangements are completed. Comment Review of Relevant I have reviewed the following items yanet (where applicable) has been applied. Medications Current Medications Ondansetron HCl (Zofran) 4 mg PRN Q6HRS PRN IV NAUSEA/VOMITING; Start 12/04/18 at 07:00; Stop 12/04/18 at 16:52; Status DC Fentanyl Citrate (Fentanyl 2ml Vial) 25 mcg PRN Q5MIN PRN IV MILD PAIN 1-3; Start 12/04/18 at 07:00; Stop 12/04/18 at 16:52; Status DC Fentanyl Citrate (Fentanyl 2ml Vial) 50 mcg PRN Q5MIN PRN IV MODERATE TO SEVERE PAIN Last administered on 12/04/18at 16:07; Start 12/04/18 at 07:00; Stop 12/04/18 at 16:52; Status DC Ringer's Solution 1,000 ml @ 30 mls/hr Q24H IV Last administered on 12/04/18at 08:07; Start 12/04/18 at 07:00; Stop 12/04/18 at 16:52; Status DC Lidocaine HCl (Xylocaine-Mpf 1% 2ml Vial) 2 ml PRN 1X PRN ID PRIOR TO IV START; Start 12/04/18 at 07:00; Stop 12/04/18 at 16:52; Status DC Prochlorperazine Edisylate (Compazine) 5 mg PACU PRN PRN IV NAUSEA, MRX1; Start 12/04/18 at 07:00; Stop 12/04/18 at 16:52; Status DC Vancomycin HCl 250 ml @ 250 mls/hr 1X PREOP PRN IV PRIOR TO PROCEDURE Last adm inistered on 12/04/18at 10:11; Start 12/04/18 at 06:00; Stop 12/04/18 at 18:00; Status DC Bacitracin 01848 unit/Sodium Chloride 1,000 ml @ 1,000 mls/hr 1X ONCE IRR Last administered on 12/04/18at 10:15; Start 12/04/18 at 06:00; Stop 12/04/18 at 06:59; Status DC Bupivacaine HCl/ Epinephrine Bitart (Sensorcain-Epi 0.5%-1:038104 Mpf) 30 ml 1X ONCE INJ ; Start 12/03/18 at 10:00; Stop 12/03/18 at 10:01; Status Cancel Bupivacaine HCl/ Epinephrine Bitart (Sensorcain-Epi 0.5%-1:470453 Mpf) 30 ml 1X ONCE INJ Last administered on 12/04/18at 14:27; Start 12/04/18 at 08:00; Stop 12/04/18 at 08:11; Status DC Gelatin (Gelfoam Size 12-7mm) 1 each STK-MED ONCE .ROUTE Last administered on 12/04/18at 10:15; Start 12/04/18 at 06:41; Stop 12/04/18 at 06:41; Status DC Ketorolac Tromethamine (Toradol Im) 60 mg STK-MED ONCE .ROUTE Last administered on 12/04/18at 10:15; Start 12/04/18 at 06:41; Stop 12/04/18 at 06:41; Status DC Thrombin 20,000 unit STK-MED ONCE TP Last administered on 12/04/18at 10:15; Start 12/04/18 at 06:41; Stop 12/04/18 at 06:42; Status DC Scopolamine (Transderm-Scop) 1 patch STK-MED ONCE TD ; Start 12/04/18 at 08:03; Stop 12/04/18 at 08:03; Status DC Propofol 20 ml @ As Directed STK-MED ONCE IV ; Start 12/04/18 at 08:05; Stop 12/04/18 at 08:06; Status DC Dexamethasone Sodium Phosphate (Decadron) 20 mg STK-MED ONCE .ROUTE ; Start 12/04/18 at 08:05; Stop 12/04/18 at 08:06; Status DC Lidocaine HCl (Lidocaine Pf 2% Vial) 5 ml STK-MED ONCE .ROUTE ; Start 12/04/18 at 08:05; Stop 12/04/18 at 08:06; Status DC Ondansetron HCl (Zofran) 4 mg STK-MED ONCE .ROUTE ; Start 12/04/18 at 08:05; Stop 12/04/18 at 08:06; Status DC Propofol 50 ml @ As Directed STK-MED ONCE IV ; Start 12/04/18 at 08:05; Stop 12/04/18 at 08:06; Status DC Rocuronium [place] (Zemuron) 50 mg STK-MED ONCE .ROUTE ; Start 12/04/18 at 08:06; Stop 12/04/18 at 08:06; Status DC Remifentanil HCl (Ultiva) 2 mg STK-MED ONCE IV ; Start 12/04/18 at 08:06; Stop 12/04/18 at 08:06; Status DC Phenylephrine HCl (Tobias-Synephrine Inj) 10 mg STK-MED ONCE .ROUTE ; Start 12/04/18 at 08:06; Stop 12/04/18 at 08:06; Status DC Sodium Chloride (SODIUM CHLORIDE 20ml) 20 ml STK-MED ONCE IJ ; Start 12/04/18 at 08:06; Stop 12/04/18 at 08:06; Status DC Scopolamine (Transderm-Scop) 1 patch 1X ONCE TD Last administered on 12/04/18at 12:51; Start 12/04/18 at 08:15; Stop 12/04/18 at 08:16; Status DC Glycopyrrolate (Robinul) 1 mg STK-MED ONCE .ROUTE ; Start 12/04/18 at 08:18; Stop 12/04/18 at 08:18; Status DC Multi-Ingred Cream/Lotion/Oil/ Oint (Artificial Tears Eye Ointment) 7 nelda STK- MED ONCE .ROUTE ; Start 12/04/18 at 08:21; Stop 12/04/18 at 08:21; Status DC Sodium Chloride (SODIUM CHLORIDE 20ml) 20 ml STK-MED ONCE IJ ; Start 12/04/18 at 08:21; Stop 12/04/18 at 08:21; Status DC Propofol 300 ml @ As Directed STK-MED ONCE IV ; Start 12/04/18 at 09:24; Stop 12/04/18 at 09:25; Status DC Gelatin (Gelfoam Size 12-7mm) 1 each STK-MED ONCE TP Last administered on 12/04/18at 10:15; Start 12/04/18 at 09:51; Stop 12/04/18 at 10:15; Status DC Gelatin (Gelfoam Size 12-7mm) 1 each STK-MED ONCE TP Last administered on 12/04/18at 10:15; Start 12/04/18 at 09:51; Stop 12/04/18 at 10:15; Status DC Gelatin (Gelfoam Size 12-7mm) 1 each STK-MED ONCE TP Last administered on 12/04/18at 10:15; Start 12/04/18 at 09:51; Stop 12/04/18 at 10:15; Status DC Desflurane (Suprane) 90 ml STK-MED ONCE IH ; Start 12/04/18 at 10:54; Stop 12/04/18 at 10:54; Status DC Remifentanil HCl (Ultiva) 2 mg STK-MED ONCE IV ; Start 12/04/18 at 11:37; Stop 12/04/18 at 11:37; Status DC Propofol 50 ml @ As Directed STK-MED ONCE IV ; Start 12/04/18 at 14:08; Stop 12/04/18 at 14:08; Status DC Acetaminophen (Tylenol) 650 mg BID PRN PO PAIN; Start 12/04/18 at 14:15; Status UNV Aspirin (Children'S Aspirin) 81 mg DAILY PO Last administered on 12/06/18at 08:01; Start 12/05/18 at 09:00 Cetirizine HCl (ZyrTEC) 10 mg HS PO Last administered on 12/05/18at 20:08; Start 12/04/18 at 21:00 Chlorhexidine Gluconate (Peridex) 15 ml BID SWSP Last administered on 12/06/18at 08:01; Start 12/04/18 at 21:00 Cyclosporine (Restasis) 1 drop BID OU Last administered on 12/06/18 08:01; Start 12/04/18 at 21:00 Loperamide HCl (Immodium Oral Susp) 1 mg PRN DAILY PRN PO DIARRHEA; Start 12/04/18 at 14:15 Sulfasalazine (Azulfidine) 500 mg BID PO Last administered on 12/06/18 08:01; Start 12/04/18 at 21:00 Ascorbic Acid (Vitamin C) 1,000 mg DAILY PO Last administered on 12/06/18 08:01; Start 12/05/18 at 09:00 Calcium Carbonate/ Glycine (Oscal) 500 mg DAILY PO Last administered on 12/06/18 08:01; Start 12/05/18 at 09:00 Non-Formulary Medication (Gluc Hcl/Csa/ Vazquez Hy/Hyalur Ac (Glucosamine Chondroitin Cap)) 1 each DAILY PO ; Start 12/05/18 at 09:00; Status UNV Artificial Tears (Artificial Tears) 1 drop QHS OU Last administered on 12/05/18 07:52; Start 12/04/18 at 21:00 Lactobacillus Rhamnosus (Culturelle) 1 cap BID PO Last administered on 12/06/18 08:01; Start 12/05/18 at 09:00 Non-Formulary Medication (Mesalamine (Apriso)) 4 cap UD PO ; Start 12/04/18 at 14:15; Stop 12/05/18 at 07:11; Status DC Multi-Ingred Cream/Lotion/Oil/ Oint (Artificial Tears Eye Ointment) 1 nelda BID OU Last administered on 12/05/18 20:08; Start 12/04/18 at 21:00 Multivitamins (Thera M Plus) 1 tab DAILY PO Last administered on 12/06/18 08:01; Start 12/05/18 at 09:00 Fish Oil (Fish Oil) 1,000 mg DAILY PO Last administered on 12/06/18 08:01; Start 12/05/18 at 09:00 Famotidine (Pepcid) 40 mg QHS PO Last administered on 12/05/18 20:08; Start 12/04/18 at 21:00 Fluticasone Propionate (Flonase) 1 spray DAILY NS Last administered on 12/06/18 08:01; Start 12/05/18 at 09:00 Fentanyl Citrate (Fentanyl 2ml Vial) 50 mcg PRN Q2HR PRN IV PAIN; Start 12/04/18 at 14:15 Vancomycin HCl 1 gm/Sodium Chloride 250 ml @ 250 mls/hr 1X ONCE IV Last administered on 12/04/18at 21:00; Start 12/04/18 at 21:00; Stop 12/04/18 at 21:59; Status DC Acetaminophen (Tylenol) 650 mg PRN Q6HRS PRN PO MILD PAIN / TEMP; Start 12/04/18 at 14:15 Al Hydroxide/Mg Hydroxide (Mylanta Plus Xs) 30 ml PRN Q3HRS PRN PO HEARTBURN / GAS; Start 12/04/18 at 14:15 Calcium Carbonate/ Glycine (Tums) 500 mg PRN Q3HRS PRN PO INDIGESTION; Start 12/04/18 at 14:15 Diphenhydramine HCl (Benadryl) 25 mg PRN Q6HRS PRN PO ITCHING Last administered on 12/05/18at 07:52; Start 12/04/18 at 14:15 Naloxone HCl (Narcan) 0.1 mg PRN Q2MIN PRN IV ADMIN; Start 12/04/18 at 14:15 Sodium Chloride (Normal Saline Flush) 3 ml QSHIFT PRN IV AFTER MEDS AND BLOOD DRAWS; Start 12/04/18 at 14:15 Potassium Chloride/Dextrose/ Sod Cl 1,000 ml @ 75 mls/hr [id number] IV Last administered on 12/05/18at 03:14; Start 12/04/18 at 16:00; Stop 12/05/18 at 19:24; Status DC Methocarbamol (Robaxin) 750 mg TID PRN PRN PO MUSCLE SPASMS Last administered on 12/05/18at 07:56; Start 12/04/18 at 14:15 Docusate Sodium (Colace) 100 mg BID PO Last administered on 12/06/18at 08:01; Start 12/04/18 at 21:00 Magnesium Hydroxide (Milk Of Magnesia) 2,400 mg PRN Q12HR PRN PO CONSTIPATION; Start 12/04/18 at 14:15 Ondansetron HCl (Zofran) 4 mg PRN Q6HRS PRN IV NAUESA, 1ST CHOICE Last administered on 12/05/18at 11:48; Start 12/04/18 at 14:15 Diphenhydramine HCl (Benadryl) 50 mg STK-MED ONCE .ROUTE ; Start 12/04/18 at 14:27; Stop 12/04/18 at 14:27; Status DC Ondansetron HCl (Zofran) 4 mg STK-MED ONCE .ROUTE ; Start 12/04/18 at 14:31; Stop 12/04/18 at 14:48; Status DC Acetaminophen/ Hydrocodone Bitart (Lortab 5/325) 1 tab PRN Q4HRS PRN PO PAIN MILD TO MOD Last administered on 12/05/18at 15:35; Start 12/04/18 at 16:45 Acetaminophen/ Hydrocodone Bitart (Lortab 5/325) 2 tab PRN Q4HRS PRN PO PAIN SEVERE Last administered on 12/06/18at 08:01; Start 12/04/18 at 16:45 Active Scripts Active Reported Fluticasone Propionate Nasal [place] (Fluticasone Propionate) 16 Gm [place].susp 1 [place] NS DAILY Apriso (Mesalamine) 0.375 Gm Cap.er.24h 4 Cap PO UD Zyrtec (Cetirizine Hcl) 10 Mg Tablet 10 Mg PO HS Systane Gel (Hypromellose) 10 Gm Gel..gram. 1 Drop OU HS Aspirin 81 Mg Tab.chew 81 Mg PO DAILY Sulfasalazine 500 Mg Tablet 500 Mg PO BID Florajen (Lactobacillus Acidophilus) 460 Mg Capsule 460 Mg PO DAILY Peridex (Chlorhexidine Gluconate) 15 Ml Mouthwash 15 Ml PO BID Celebrex (Celecoxib) 200 Mg Capsule 400 Mg PO DAILY 30 Days Tylenol (Acetaminophen) 325 Mg Tablet 650 Mg PO BID PRN Artificial Tears Eye Oint (Mineral Oil/Petrolatum,White) 3.5 Gm Oint...g. 3.5 Gm EACHEYE BID Fish Oil 1,200 Mg Softgel ([place]-3S/Dha/Epa/Fish Oil) 1 Each Capsule 1 Each PO DAILY Glucosamine Chondroitin Cap (Gluc Hcl/Csa/Vazquez Hy/Hyalur Ac) 1 Each Capsule 1 Each PO DAILY Vitamin C (Ascorbic Acid) 1,000 Mg Tablet 1,000 Mg PO DAILY Calcium Carbonate 600 Mg Tablet 600 Mg PO DAILY Daily Vitamin (Multivitamin) 1 Each Tablet 1 Each PO DAILY Imodium A-D (Loperamide Hcl) 1 Mg/7.5 Ml Liquid 1 Mg PO PRN DAILY Zantac (Ranitidine Hcl) 300 Mg Tablet 300 Mg PO HS Restasis (Cyclosporine) 1 Each Droperette 0.05 % EACHEYE BID Vitals/I & O Vital Sign - Last 24 Hours 12/05/18 12/05/18 12/05/18 12/05/18 10:47 11:29 15:00 15:35 Temp 98.7 99.4 98.7 99.4 Pulse 83 96 Resp 20 20 20 20 B/P (MAP) 116/68 (84) 107/65 (79) Pulse Ox 100 96 O2 Delivery Room Air Room Air Room Air 12/05/18 12/05/18 12/05/18 12/05/18 15:36 17:11 17:41 19:07 Temp 99.8 99.8 Pulse 91 Resp 18 20 B/P (MAP) 102/64 (77) Pulse Ox 100 97 O2 Delivery Room Air Room Air Room Air O2 Flow Rate 10.0 12/05/18 12/05/18 12/05/18 12/05/18 19:38 20:08 21:17 22:30 Temp 99.6 99.6 Pulse 100 Resp 18 20 B/P (MAP) 99/58 (72) Pulse Ox 97 93 O2 Delivery Room Air Room Air Room Air Room Air 12/06/18 12/06/18 12/06/18 12/06/18 01:18 01:25 02:56 02:56 Temp 100.1 100.1 Pulse 96 Resp 18 18 B/P (MAP) 95/54 (68) Pulse Ox 93 95 O2 Delivery Room Air Room Air Room Air Room Air 12/06/18 12/06/18 12/06/18 12/06/18 07:00 07:50 08:01 08:50 Temp 99.6 99.6 Pulse 96 Resp 16 B/P (MAP) 104/54 (71) Pulse Ox 95 95 O2 Delivery Room Air Room Air Room Air Room Air Intake and Output 12/05/18 12/05/18 12/06/18 14:59 22:59 06:59 Intake Total 400 ml Balance 400 ml MARGY RAMOS MD Dec 06, 2018 09:43
[2018-12-06] MEDS ORDERED: BISACODYL 10 MG SUPP.RECT. PR PRN (09:45)
[2018-12-06] MEDS: BISACODYL 5 MG TABLET.DR. PO SCH (10:40)
[2018-12-06] MEDS: SENNOSIDES/DOCUSATE 8.6/50MG TABLET. PO SCH ×2 (10:40→20:25)
[2018-12-06] MEDS: METHOCARBAMOL 750 MG TABLET PO PRN (13:58)
--- NOTE | 2018-12-06 14:27 | PDOC ---
PROGRESS NOTES Subjective Subjective POD #2 sitting up in chair back pain improving Objective Objective Vital Signs Date Time Temp Pulse Resp B/P (MAP) Pulse Ox O2 Delivery O2 Flow Rate FiO2 12/06/18 13:59 96 Room Air 12/06/18 10:46 98.3 90 18 105/56 (72) 98.3 12/05/18 15:36 10.0 Intake and Output 12/06/18 07:00 Intake Total 400 ml Balance 400 ml Intake Oral 400 ml # Voids 4 Physical Exam General: Alert, Oriented X3, Cooperative, No acute distress MUSCULOSKELETAL: Other (CUELLAR) Neuro: Normal speech Skin: Other (dressing dry and intact) Assessment Assessment Problems Medical Problems: (1) CAD (coronary artery disease) Status: Chronic (2) Diabetic peripheral neuropathy Status: Chronic (3) HTN (hypertension) Status: Chronic (4) Obesity Status: Chronic Plan Plan of Care encouraged increased activity as tolerated PT SNF tomorrow Comment Review of Relevant I have reviewed the following items yanet (where applicable) has been applied. Medications Current Medications Ondansetron HCl (Zofran) 4 mg PRN Q6HRS PRN IV NAUSEA/VOMITING; Start 12/04/18 at 07:00; Stop 12/04/18 at 16:52; Status DC Fentanyl Citrate (Fentanyl 2ml Vial) 25 mcg PRN Q5MIN PRN IV MILD PAIN 1-3; Start 12/04/18 at 07:00; Stop 12/04/18 at 16:52; Status DC Fentanyl Citrate (Fentanyl 2ml Vial) 50 mcg PRN Q5MIN PRN IV MODERATE TO SEVERE PAIN Last administered on 12/04/18at 16:07; Start 12/04/18 at 07:00; Stop 12/04/18 at 16:52; Status DC Ringer's Solution 1,000 ml @ 30 mls/hr Q24H IV Last administered on 12/04/18at 08:07; Start 12/04/18 at 07:00; Stop 12/04/18 at 16:52; Status DC Lidocaine HCl (Xylocaine-Mpf 1% 2ml Vial) 2 ml PRN 1X PRN ID PRIOR TO IV START; Start 12/04/18 at 07:00; Stop 12/04/18 at 16:52; Status DC Prochlorperazine Edisylate (Compazine) 5 mg PACU PRN PRN IV NAUSEA, MRX1; Start 12/04/18 at 07:00; Stop 12/04/18 at 16:52; Status DC Vancomycin HCl 250 ml @ 250 mls/hr 1X PREOP PRN IV PRIOR TO PROCEDURE Last administered on 12/04/18at 10:11; Start 12/04/18 at 06:00; Stop 12/04/18 at 18:00; Status DC Bacitracin 56640 unit/Sodium Chloride 1,000 ml @ 1,000 mls/hr 1X ONCE IRR Last administered on 12/04/18at 10:15; Start 12/04/18 at 06:00; Stop 12/04/18 at 06:59; Status DC Bupivacaine HCl/ Epinephrine Bitart (Sensorcain-Epi 0.5%-1:508137 Mpf) 30 ml 1X ONCE INJ ; Start 12/03/18 at 10:00; Stop 12/03/18 at 10:01; Status Cancel Bupivacaine HCl/ Epinephrine Bitart (Sensorcain-Epi 0.5%-1:435828 Mpf) 30 ml 1X ONCE INJ Last administered on 12/04/18at 14:27; Start 12/04/18 at 08:00; Stop 12/04/18 at 08:11; Status DC Gelatin (Gelfoam Size 12-7mm) 1 each STK-MED ONCE .ROUTE Last administered on 12/04/18at 10:15; Start 12/04/18 at 06:41; Stop 12/04/18 at 06:41; Status DC Ketorolac Tromethamine (Toradol Im) 60 mg STK-MED ONCE .ROUTE Last administered on 12/04/18at 10:15; Start 12/04/18 at 06:41; Stop 12/04/18 at 06:41; Status DC Thrombin 20,000 unit STK-MED ONCE TP Last administered on 12/04/18at 10:15; Start 12/04/18 at 06:41; Stop 12/04/18 at 06:42; Status DC Scopolamine (Transderm-Scop) 1 patch STK-MED ONCE TD ; Start 12/04/18 at 08:03; Stop 12/04/18 at 08:03; Status DC Propofol 20 ml @ As Directed STK-MED ONCE IV ; Start 12/04/18 at 08:05; Stop 12/04/18 at 08:06; Status DC Dexamethasone Sodium Phosphate (Decadron) 20 mg STK-MED ONCE .ROUTE ; Start 12/04/18 at 08:05; Stop 12/04/18 at 08:06; Status DC Lidocaine HCl (Lidocaine Pf 2% Vial) 5 ml STK-MED ONCE .ROUTE ; Start 12/04/18 at 08:05; Stop 12/04/18 at 08:06; Status DC Ondansetron HCl (Zofran) 4 mg STK-MED ONCE .ROUTE ; Start 12/04/18 at 08:05; Stop 12/04/18 at 08:06; Status DC Propofol 50 ml @ As Directed STK-MED ONCE IV ; Start 12/04/18 at 08:05; Stop 12/04/18 at 08:06; Status DC Rocuronium Griffith (Zemuron) 50 mg STK-MED ONCE .ROUTE ; Start 12/04/18 at 08:06; Stop 12/04/18 at 08:06; Status DC Remifentanil HCl (Ultiva) 2 mg STK-MED ONCE IV ; Start 12/04/18 at 08:06; Stop 12/04/18 at 08:06; Status DC Phenylephrine HCl (Tobias-Synephrine Inj) 10 mg STK-MED ONCE .ROUTE ; Start at 08:06; Stop 12/04/18 at 08:06; Status DC Sodium Chloride (SODIUM CHLORIDE 20ml) 20 ml STK-MED ONCE IJ ; Start 12/04/18 at 08:06; Stop 12/04/18 at 08:06; Status DC Scopolamine (Transderm-Scop) 1 patch 1X ONCE TD Last administered on 12/04/18at 12:51; Start 12/04/18 at 08:15; Stop 12/04/18 at 08:16; Status DC Glycopyrrolate (Robinul) 1 mg STK-MED ONCE .ROUTE ; Start 12/04/18 at 08:18; Stop 12/04/18 at 08:18; Status DC Multi-Ingred Cream/Lotion/Oil/ Oint (Artificial Tears Eye Ointment) 7 nelda STK- MED ONCE .ROUTE ; Start 12/04/18 at 08:21; Stop 12/04/18 at 08:21; Status DC Sodium Chloride (SODIUM CHLORIDE 20ml) 20 ml STK-MED ONCE IJ ; Start 12/04/18 at 08:21; Stop 12/04/18 at 08:21; Status DC Propofol 300 ml @ As Directed STK-MED ONCE IV ; Start 12/04/18 at 09:24; Stop 12/04/18 at 09:25; Status DC Gelatin (Gelfoam Size 12-7mm) 1 each STK-MED ONCE TP Last administered on 12/04/18at 10:15; Start 12/04/18 at 09:51; Stop 12/04/18 at 10:15; Status DC Gelatin (Gelfoam Size 12-7mm) 1 each STK-MED ONCE TP Last administered on 12/04/18at 10:15; Start 12/04/18 at 09:51; Stop 12/04/18 at 10:15; Status DC Gelatin (Gelfoam Size 12-7mm) 1 each STK-MED ONCE TP Last administered on 12/04/18at 10:15; Start 12/04/18 at 09:51; Stop 12/04/18 at 10:15; Status DC Desflurane (Suprane) 90 ml STK-MED ONCE IH ; Start 12/04/18 at 10:54; Stop 12/04/18 at 10:54; Status DC Remifentanil HCl (Ultiva) 2 mg STK-MED ONCE IV ; Start 12/04/18 at 11:37; Stop 12/04/18 at 11:37; Status DC Propofol 50 ml @ As Directed STK-MED ONCE IV ; Start 12/04/18 at 14:08; Stop 12/04/18 at 14:08; Status DC Acetaminophen (Tylenol) 650 mg BID PRN PO PAIN; Start 12/04/18 at 14:15; Status UNV Aspirin (Children'S Aspirin) 81 mg DAILY PO Last administered on 12/06/18at 08:01; Start 12/05/18 at 09:00 Cetirizine HCl (ZyrTEC) 10 mg HS PO Last administered on 12/05/18at 20:08; Start 12/04/18 at 21:00 Chlorhexidine Gluconate (Peridex) 15 ml BID SWSP Last administered on 12/06/18at 08:01; Start 12/04/18 at 21:00 Cyclosporine (Restasis) 1 drop BID OU Last administered on 12/06/18 08:01; Start 12/04/18 at 21:00 Loperamide HCl (Immodium Oral Susp) 1 mg PRN DAILY PRN PO DIARRHEA; Start 12/04/18 at 14:15 Sulfasalazine (Azulfidine) 500 mg BID PO Last administered on 12/06/18 08:01; Start 12/04/18 at 21:00 Ascorbic Acid (Vitamin C) 1,000 mg DAILY PO Last administered on 12/06/18 08:01; Start 12/05/18 at 09:00 Calcium Carbonate/ Glycine (Oscal) 500 mg DAILY PO Last administered on 12/06/18 08:01; Start 12/05/18 at 09:00 Non-Formulary Medication (Gluc Hcl/Csa/ Vazquez Hy/Hyalur Ac (Glucosamine Chondroitin Cap)) 1 each DAILY PO ; Start 12/05/18 at 09:00; Status UNV Artificial Tears (Artificial Tears) 1 drop QHS OU Last administered on 12/05/18 07:52; Start 12/04/18 at 21:00 Lactobacillus Rhamnosus (Culturelle) 1 cap BID PO Last administered on 12/06/18 08:01; Start 12/05/18 at 09:00 Non-Formulary Medication (Mesalamine (Apriso)) 4 cap UD PO ; Start 12/04/18 at 14:15; Stop 12/05/18 at 07:11; Status DC Multi-Ingred Cream/Lotion/Oil/ Oint (Artificial Tears Eye Ointment) 1 nelda BID OU Last administered on 12/05/18 20:08; Start 12/04/18 at 21:00 Multivitamins (Thera M Plus) 1 tab DAILY PO Last administered on 12/06/18 08:01; Start 12/05/18 at 09:00 Fish Oil (Fish Oil) 1,000 mg DAILY PO Last administered on 12/06/18 08:01; Start 12/05/18 at 09:00 Famotidine (Pepcid) 40 mg QHS PO Last administered on 12/05/18 20:08; Start 12/04/18 at 21:00 Fluticasone Propionate (Flonase) 1 spray DAILY NS Last administered on 9/25/19at 08:01; Start 12/05/18 at 09:00 Fentanyl Citrate (Fentanyl 2ml Vial) 50 mcg PRN Q2HR PRN IV PAIN; Start 12/04/18 at 14:15 Vancomycin HCl 1 gm/Sodium Chloride 250 ml @ 250 mls/hr 1X ONCE IV Last administered on 12/04/18at 21:00; Start 12/04/18 at 21:00; Stop 12/04/18 at 21:59; Status DC Acetaminophen (Tylenol) 650 mg PRN Q6HRS PRN PO MILD PAIN / TEMP; Start 12/04/18 at 14:15 Al Hydroxide/Mg Hydroxide (Mylanta Plus Xs) 30 ml PRN Q3HRS PRN PO HEARTBURN / GAS; Start 12/04/18 at 14:15 Calcium Carbonate/ Glycine (Tums) 500 mg PRN Q3HRS PRN PO INDIGESTION; Start 12/04/18 at 14:15 Diphenhydramine HCl (Benadryl) 25 mg PRN Q6HRS PRN PO ITCHING Last administered on 12/05/18at 07:52; Start 12/04/18 at 14:15 Naloxone HCl (Narcan) 0.1 mg PRN Q2MIN PRN IV ADMIN; Start 12/04/18 at 14:15 Sodium Chloride (Normal Saline Flush) 3 ml QSHIFT PRN IV AFTER MEDS AND BLOOD DRAWS; Start 12/04/18 at 14:15 Potassium Chloride/Dextrose/ Sod Cl 1,000 ml @ 75 mls/hr [id number] IV Last administered on 12/05/18at 03:14; Start 12/04/18 at 16:00; Stop 12/05/18 at 19:24; Status DC Methocarbamol (Robaxin) 750 mg TID PRN PRN PO MUSCLE SPASMS Last administered on 12/06/18at 13:58; Start 12/04/18 at 14:15 Docusate Sodium (Colace) 100 mg BID PO Last administered on 12/06/18at 08:01; Start 12/04/18 at 21:00 Magnesium Hydroxide (Milk Of Magnesia) 2,400 mg PRN Q12HR PRN PO CONSTIPATION; Start 12/04/18 at 14:15 Ondansetron HCl (Zofran) 4 mg PRN Q6HRS PRN IV NAUESA, 1ST CHOICE Last administered on 12/05/18at 11:48; Start 12/04/18 at 14:15 Diphenhydramine HCl (Benadryl) 50 mg STK-MED ONCE .ROUTE ; Start 12/04/18 at 14:27; Stop 12/04/18 at 14:27; Status DC Ondansetron HCl (Zofran) 4 mg STK-MED ONCE .ROUTE ; Start 12/04/18 at 14:31; Stop 12/04/18 at 14:48; Status DC Acetaminophen/ Hydrocodone Bitart (Lortab 5/325) 1 tab PRN Q4HRS PRN PO PAIN MILD TO MOD Last administered on 12/05/18at 15:35; Start 12/04/18 at 16:45 Acetaminophen/ Hydrocodone Bitart (Lortab 5/325) 2 tab PRN Q4HRS PRN PO PAIN SEVERE Last administered on 12/06/18at 13:59; Start 12/04/18 at 16:45 Senna/Docusate Sodium (Senna Plus) 1 tab BID PO Last administered on 12/06/18at 10:41; Start 12/06/18 at 10:00 Bisacodyl (Dulcolax Tab) 10 mg DAILY PO Last administered on 12/06/18at 10:41; Start 12/06/18 at 11:00 Bisacodyl (Dulcolax Supp) 10 mg PRN DAILY PRN NC CONSTIPATION; Start 12/06/18 at 09:45 Active Scripts Active Reported Fluticasone Propionate Nasal [place] (Fluticasone Propionate) 16 Gm [place].susp 1 [place] NS DAILY Apriso (Mesalamine) 0.375 Gm Cap.er.24h 4 Cap PO UD Zyrtec (Cetirizine Hcl) 10 Mg Tablet 10 Mg PO HS Systane Gel (Hypromellose) 10 Gm Gel..gram. 1 Drop OU HS Aspirin 81 Mg Tab.chew 81 Mg PO DAILY Sulfasalazine 500 Mg Tablet 500 Mg PO BID Florajen (Lactobacillus Acidophilus) 460 Mg Capsule 460 Mg PO DAILY Peridex (Chlorhexidine Gluconate) 15 Ml Mouthwash 15 Ml PO BID Celebrex (Celecoxib) 200 Mg Capsule 400 Mg PO DAILY 30 Days Tylenol (Acetaminophen) 325 Mg Tablet 650 Mg PO BID PRN Artificial Tears Eye Oint (Mineral Oil/Petrolatum,White) 3.5 Gm Oint...g. 3.5 Gm EACHEYE BID Fish Oil 1,200 Mg Softgel (Mobile-3S/Dha/Epa/Fish Oil) 1 Each Capsule 1 Each PO DAILY Glucosamine Chondroitin Cap (Gluc Hcl/Csa/Vazquez Hy/Hyalur Ac) 1 Each Capsule 1 Each PO DAILY Vitamin C (Ascorbic Acid) 1,000 Mg Tablet 1,000 Mg PO DAILY Calcium Carbonate 600 Mg Tablet 600 Mg PO DAILY Daily Vitamin (Multivitamin) 1 Each Tablet 1 Each PO DAILY Imodium A-D (Loperamide Hcl) 1 Mg/7.5 Ml Liquid 1 Mg PO PRN DAILY Zantac (Ranitidine Hcl) 300 Mg Tablet 300 Mg PO HS Restasis (Cyclosporine) 1 Each Droperette 0.05 % EACHEYE BID Vitals/I & O Vital Sign - Last 24 Hours 12/05/18 12/05/18 12/05/18 12/05/18 15:00 15:35 15:36 17:11 Temp 99.4 99.4 Pulse 96 Resp 20 20 18 B/P (MAP) 107/65 (79) Pulse Ox 96 100 O2 Delivery Room Air Room Air O2 Flow Rate 10.0 12/05/18 12/05/18 12/05/18 12/05/18 17:41 19:07 19:38 20:08 Temp 99.8 99.8 Pulse 91 Resp 20 18 B/P (MAP) 102/64 (77) Pulse Ox 97 97 O2 Delivery Room Air Room Air Room Air Room Air 12/05/18 12/05/18 12/06/18 12/06/18 21:17 22:30 01:18 01:25 Temp 99.6 100.1 99.6 100.1 Pulse 100 96 Resp 20 18 18 B/P (MAP) 99/58 (72) 95/54 (68) Pulse Ox 93 93 95 O2 Delivery Room Air Room Air Room Air Room Air 12/06/18 12/06/18 12/06/18 12/06/18 02:56 02:56 07:00 07:50 Temp 99.6 99.6 Pulse 96 Resp 16 B/P (MAP) 104/54 (71) Pulse Ox 95 O2 Delivery Room Air Room Air Room Air Room Air 12/06/18 12/06/18 12/06/1812/06/19 08:01 08:50 10:46 13:59 Temp 98.3 98.3 Pulse 90 Resp 18 B/P (MAP) 105/56 (72) Pulse Ox 95 96 96 O2 Delivery Room Air Room Air Room Air Room Air Intake and Output 12/05/18 12/05/18 12/06/18 15:00 23:00 07:00 Intake Total 400 ml Balance 400 ml RENÉE BROWNE D[employer]MATOLOGY SALES REPRESENTATIVE Dec 06, 2018 14:27
--- NOTE | 2018-12-06 18:06 | PATHOLOGY ---
[facility] Accession Number: [id number] . 01 Material submitted: . vertebral column - LUMBAR DECOMPRESSION . 01 Clinical history: . Lumbar spondylolithiasis, stenosis with neurogenic claudication, back pain . 02 Diagnosis: Segments of fibrocartilaginous, fibroadipose, and skeletal muscle tissue and bone, lumbar decompression: - Degenerative changes of fibrocartilaginous tissue. (JPM:cargo inspector; 12/06/2018) R 12/06/2018 1208 Local . 02 Comment: There is no evidence of an acute inflammatory process or malignancy. (JPM:cargo inspector; 12/06/2018) . 02 Electronically signed: . Cruz Sales MD, Pathologist NPI- [id number] . 01 Gross description: . The specimen is received in formalin, labeled "Alexandria Graham, lumbar decompression". Received are multiple segments of pale mack gritty tissue admixed with slight amount of bone measuring 4.8 x 4.2 x 0.9 cm in aggregate dimensions. The specimen is submitted representatively in cassette A1, following decalcification. ([facility]; 12/05/2018) QA/[facility] 12/05/2018 1555 Local . 02 Pathologist provided ICD-10: M51.36 . 02 CPT . 567824, [id number] Specimen Comment: A courtesy copy of this report has been sent to Specimen Comment: [phone], . Specimen Comment: Report sent to / DR LUO Performed at: 01 [facility] [address], [place], [place] [id number] MD Tk Cabrera MD Phone: [phone] Performed at: 02 [facility] [address] [place], [place] [id number] MD Cruz Sales MD Phone: [phone]
[2018-12-06] MEDS: FAMOTIDINE 20 MG TABLET. PO SCH (20:25)
[2018-12-06] MEDS: CETIRIZINE HCL 10 MG TABLET. PO SCH (20:26)
[2018-12-06] MEDS: POLYVINYL ALCOHOL 1.4% OPHTH SOLUTION 15ML BOTTLE. OU SCH (20:27)
[2018-12-07] MEDS: HYDROcodone/APAP 5/325MG 1 TAB TABLET PO PRN ×3 (01:03→14:45)
[2018-12-07 03:30] VITALS: BP 118/64
[2018-12-07] MEDS: METHOCARBAMOL 750 MG TABLET PO PRN (05:12)
[2018-12-07 06:21] VITALS: BP 116/62
[2018-12-07] MEDS: cycloSPORINE 0.05% OPHTH DROPERETTE. OU SCH (08:02)
[2018-12-07] MEDS: FLUTICASONE 50MCG/NASAL SPRAY 16GM BOTTLE. NS SCH (08:03)
[2018-12-07] MEDS: CALCIUM CARBONATE 500 MG TABLET PO SCH (08:04)
[2018-12-07] MEDS: sulfaSALAzine 500 MG TABLET PO SCH (08:04)
[2018-12-07] MEDS: MULTIVITAMIN with MINERAL TABLET. PO SCH (08:05)
[2018-12-07] MEDS: ASCORBIC ACID 500 MG TABLET PO SCH (08:05)
[2018-12-07] MEDS: BISACODYL 5 MG TABLET.DR. PO SCH (08:05)
[2018-12-07] MEDS: OMEGA-3 FATTY ACIDS/FISH OIL 1,000 MG CAPSULE. PO SCH (08:06)
[2018-12-07] MEDS: LACTOBACILLUS RHAMNOSUS GG 1 CAPSULE. PO SCH (08:06)
[2018-12-07] MEDS: ASPIRIN CHEWABLE 81 MG TABLET. PO SCH (08:06)
[2018-12-07] MEDS: POLYVINYL ALCOHOL 1.4% OPHTH SOLUTION 15ML BOTTLE. OU SCH (08:35)
[2018-12-07] MEDS: CHLORHEXIDINE 0.12% 15 ML MOUTHWASH. SWSP SCH (08:35)
[2018-12-07] MEDS: MINERAL OIL/PETROLATUM,WHITE OPHTH OINT 3.5GM TUBE. OU SCH (08:36)
[2018-12-07] MEDS: DOCUSATE SODIUM 100 MG CAPSULE. PO SCH (09:00)
[2018-12-07] MEDS: SENNOSIDES/DOCUSATE 8.6/50MG TABLET. PO SCH (09:00)
[2018-12-07 11:16] VITALS: BP 105/57
--- NOTE | 2018-12-07 12:54 | PDOC ---
PROGRESS NOTES Subjective Subjective She admits less pain in her low back. She had a small bowel movement. Objective Objective Vital Signs Date Time Temp Pulse Resp B/P (MAP) Pulse Ox O2 Delivery O2 Flow Rate FiO2 12/07/18 11:16 98.4 94 18 105/57 (73) 96 Room Air 98.4 12/05/18 15:36 10.0 Intake and Output 12/07/18 07:00 Intake Total 160 ml Balance 160 ml Intake Oral 160 ml # Voids 8 Physical Exam Physical Exam She is sitting up in bedside chair and seems to be comfortable and she is walking with roller walker and lumbar corset. Assessment Assessment Problems Medical Problems: (1) CAD (coronary artery disease) Status: Chronic (2) Diabetic peripheral neuropathy Status: Chronic (3) HTN (hypertension) Status: Chronic (4) Obesity Status: Chronic Plan Plan of Care Agree with plans for transfer to SNF when medically stable. Comment Review of Relevant I have reviewed the following items yanet (where applicable) has been applied. Medications Current Medications Ondansetron HCl (Zofran) 4 mg PRN Q6HRS PRN IV NAUSEA/VOMITING; Start 12/04/18 at 07:00; Stop 12/04/18 at 16:52; Status DC Fentanyl Citrate (Fentanyl 2ml Vial) 25 mcg PRN Q5MIN PRN IV MILD PAIN 1-3; Start 12/04/18 at 07:00; Stop 12/04/18 at 16:52; Status DC Fentanyl Citrate (Fentanyl 2ml Vial) 50 mcg PRN Q5MIN PRN IV MODERATE TO SEVERE PAIN Last administered on 12/04/18at 16:07; Start 12/04/18 at 07:00; Stop 12/04/18 at 16:52; Status DC Ringer's Solution 1,000 ml @ 30 mls/hr Q24H IV Last administered on 12/04/18at 08:07; Start 12/04/18 at 07:00; Stop 12/04/18 at 16:52; Status DC Lidocaine HCl (Xylocaine-Mpf 1% 2ml Vial) 2 ml PRN 1X PRN ID PRIOR TO IV START; Start 12/04/18 at 07:00; Stop 12/04/18 at 16:52; Status DC Prochlorperazine Edisylate (Compazine) 5 mg PACU PRN PRN IV NAUSEA, MRX1; Start 12/04/18 at 07:00; Stop 12/04/18 at 16:52; Status DC Vancomycin HCl 250 ml @ 250 mls/hr 1X PREOP PRN IV PRIOR TO PROCEDURE Last administered on 12/04/18at 10:11; Start 12/04/18 at 06:00; Stop 12/04/18 at 18:00; Status DC Bacitracin 64906 unit/Sodium Chloride 1,000 ml @ 1,000 mls/hr 1X ONCE IRR Last administered on 12/04/18at 10:15; Start 12/04/18 at 06:00; Stop 12/04/18 at 06:59; Status DC Bupivacaine HCl/ Epinephrine Bitart (Sensorcain-Epi 0.5%-1:718612 Mpf) 30 ml 1X ONCE INJ ; Start 12/03/18 at 10:00; Stop 12/03/18 at 10:01; Status Cancel Bupivacaine HCl/ Epinephrine Bitart (Sensorcain-Epi 0.5%-1:124633 Mpf) 30 ml 1X ONCE INJ Last administered on 12/04/18at 14:27; Start 12/04/18 at 08:00; Stop 12/04/18 at 08:11; Status DC Gelatin (Gelfoam Size 12-7mm) 1 each STK-MED ONCE .ROUTE Last administered on 12/04/18at 10:15; Start 12/04/18 at 06:41; Stop 12/04/18 at 06:41; Status DC Ketorolac Tromethamine (Toradol Im) 60 mg STK-MED ONCE .ROUTE Last administered on 12/04/18at 10:15; Start 12/04/18 at 06:41; Stop 12/04/18 at 06:41; Status DC Thrombin 20,000 unit STK-MED ONCE TP Last administered on 12/04/18at 10:15; Start 12/04/18 at 06:41; Stop 12/04/18 at 06:42; Status DC Scopolamine (Transderm-Scop) 1 patch STK-MED ONCE TD ; Start 12/04/18 at 08:03; Stop 12/04/18 at 08:03; Status DC Propofol 20 ml @ As Directed STK-MED ONCE IV ; Start 12/04/18 at 08:05; Stop 12/04/18 at 08:06; Status DC Dexamethasone Sodium Phosphate (Decadron) 20 mg STK-MED ONCE .ROUTE ; Start 12/04/18 at 08:05; Stop 12/04/18 at 08:06; Status DC Lidocaine HCl (Lidocaine Pf 2% Vial) 5 ml STK-MED ONCE .ROUTE ; Start 12/04/18 at 08:05; Stop 12/04/18 at 08:06; Status DC Ondansetron HCl (Zofran) 4 mg STK-MED ONCE .ROUTE ; Start 12/04/18 at 08:05; Stop 12/04/18 at 08:06; Status DC Propofol 50 ml @ As Directed STK-MED ONCE IV ; Start 12/04/18 at 08:05; Stop 12/04/18 at 08:06; Status DC Rocuronium Lohn (Zemuron) 50 mg STK-MED ONCE .ROUTE ; Start 12/04/18 at 08:06; Stop 12/04/18 at 08:06; Status DC Remifentanil HCl (Ultiva) 2 mg STK-MED ONCE IV ; Start 12/04/18 at 08:06; Stop 12/04/18 at 08:06; Status DC Phenylephrine HCl (Tobias-Synephrine Inj) 10 mg STK-MED ONCE .ROUTE ; Start 12/04/18 at 08:06; Stop 12/04/18 at 08:06; Status DC Sodium Chloride (SODIUM CHLORIDE 20ml) 20 ml STK-MED ONCE IJ ; Start 12/04/18 at 08:06; Stop 12/04/18 at 08:06; Status DC Scopolamine (Transderm-Scop) 1 patch 1X ONCE TD Last administered on 12/04/18at 12:51; Start 12/04/18 at 08:15; Stop 12/04/18 at 08:16; Status DC Glycopyrrolate (Robinul) 1 mg STK-MED ONCE .ROUTE ; Start 12/04/18 at 08:18; Stop 12/04/18 at 08:18; Status DC Multi-Ingred Cream/Lotion/Oil/ Oint (Artificial Tears Eye Ointment) 7 nelda STK- MED ONCE .ROUTE ; Start 12/04/18 at 08:21; Stop 12/04/18 at 08:21; Status DC Sodium Chloride (SODIUM CHLORIDE 20ml) 20 ml STK-MED ONCE IJ ; Start 12/04/18 at 08:21; Stop 12/04/18 at 08:21; Status DC Propofol 300 ml @ As Directed STK-MED ONCE IV ; Start 12/04/18 at 09:24; Stop 12/04/18 at 09:25; Status DC Gelatin (Gelfoam Size 12-7mm) 1 each STK-MED ONCE TP Last administered on 12/04/18at 10:15; Start 12/04/18 at 09:51; Stop 12/04/18 at 10:15; Status DC Gelatin (Gelfoam Size 12-7mm) 1 each STK-MED ONCE TP Last administered on 12/04/18at 10:15; Start 12/04/18 at 09:51; Stop 12/04/18 at 10:15; Status DC Gelatin (Gelfoam Size 12-7mm) 1 each STK-MED ONCE TP Last administered on 12/04/18at 10:15; Start 12/04/18 at 09:51; Stop 12/04/18 at 10:15; Status DC Desflurane (Suprane) 90 ml STK-MED ONCE IH ; Start 12/04/18 at 10:54; Stop 12/04 at 10:54; Status DC Remifentanil HCl (Ultiva) 2 mg STK-MED ONCE IV ; Start 12/04/18 at 11:37; Stop 12/04/18 at 11:37; Status DC Propofol 50 ml @ As Directed STK-MED ONCE IV ; Start 12/04/18 at 14:08; Stop 12/04/18 at 14:08; Status DC Acetaminophen (Tylenol) 650 mg BID PRN PO PAIN; Start 12/04/18 at 14:15; Status UNV Aspirin (Children'S Aspirin) 81 mg DAILY PO Last administered on 12/07/18at 08:06; Start 12/05/18 at 09:00 Cetirizine HCl (ZyrTEC) 10 mg HS PO Last administered on 12/06/18at 20:26; St art 12/04/18 at 21:00 Chlorhexidine Gluconate (Peridex) 15 ml BID SWSP Last administered on 12/07/18at 08:35; Start 12/04/18 at 21:00 Cyclosporine (Restasis) 1 drop BID OU Last administered on 12/07/18 08:02; Start 12/04/18 at 21:00 Loperamide HCl (Immodium Oral Susp) 1 mg PRN DAILY PRN PO DIARRHEA; Start 12/04/18 at 14:15 Sulfasalazine (Azulfidine) 500 mg BID PO Last administered on 12/07/18 08:04; Start 12/04/18 at 21:00 Ascorbic Acid (Vitamin C) 1,000 mg DAILY PO Last administered on 12/07/18 08:05; Start 12/05/18 at 09:00 Calcium Carbonate/ Glycine (Oscal) 500 mg DAILY PO Last administered on 12/07/18 08:04; Start 12/05/18 at 09:00 Non-Formulary Medication (Gluc Hcl/Csa/ Vazquez Hy/Hyalur Ac (Glucosamine Chondroitin Cap)) 1 each DAILY PO ; Start 12/05/18 at 09:00; Status UNV Artificial Tears (Artificial Tears) 1 drop QHS OU Last administered on 12/07/18 08:35; Start 12/04/18 at 21:00 Lactobacillus Rhamnosus (Culturelle) 1 cap BID PO Last administered on 12/07/18 08:06; Start 12/05/18 at 09:00 Non-Formulary Medication (Mesalamine (Apriso)) 4 cap UD PO ; Start 12/04/18 at 14:15; Stop 12/05/18 at 07:11; Status DC Multi-Ingred Cream/Lotion/Oil/ Oint (Artificial Tears Eye Ointment) 1 nelda BID OU Last administered on 12/06/18 20:26; Start 12/04/18 at 21:00 Multivitamins (Thera M Plus) 1 tab DAILY PO Last administered on 12/07/18 08:05; Start 12/05/18 at 09:00 Fish Oil (Fish Oil) 1,000 mg DAILY PO Last administered on 12/07/18 08:06; Start 12/05/18 at 09:00 Famotidine (Pepcid) 40 mg QHS PO Last administered on 12/06/18 20:25; Start 12/04/18 at 21:00 Fluticasone Propionate (Flonase) 1 spray DAILY NS Last administered on 08:03; Start 12/05/18 at 09:00 Fentanyl Citrate (Fentanyl 2ml Vial) 50 mcg PRN Q2HR PRN IV PAIN; Start 12/04/18 at 14:15 Vancomycin HCl 1 gm/Sodium Chloride 250 ml @ 250 mls/hr 1X ONCE IV Last administered on 12/04/18at 21:00; Start 12/04/18 at 21:00; Stop 12/04/18 at 21:59; Status DC Acetaminophen (Tylenol) 650 mg PRN Q6HRS PRN PO MILD PAIN / TEMP; Start 12/04/18 at 14:15 Al Hydroxide/Mg Hydroxide (Mylanta Plus Xs) 30 ml PRN Q3HRS PRN PO HEARTBURN / GAS; Start 12/04/18 at 14:15 Calcium Carbonate/ Glycine (Tums) 500 mg PRN Q3HRS PRN PO INDIGESTION; Start 12/04/18 at 14:15 Diphenhydramine HCl (Benadryl) 25 mg PRN Q6HRS PRN PO ITCHING Last administered on 12/05/18at 07:52; Start 12/04/18 at 14:15 Naloxone HCl (Narcan) 0.1 mg PRN Q2MIN PRN IV ADMIN; Start 12/04/18 at 14:15 Sodium Chloride (Normal Saline Flush) 3 ml QSHIFT PRN IV AFTER MEDS AND BLOOD DRAWS; Start 12/04/18 at 14:15 Potassium Chloride/Dextrose/ Sod Cl 1,000 ml @ 75 mls/hr [id number] IV Last administered on 12/05/18at 03:14; Start 12/04/18 at 16:00; Stop 12/05/18 at 19:24; Status DC Methocarbamol (Robaxin) 750 mg TID PRN PRN PO MUSCLE SPASMS Last administered on 12/07/18at 05:12; Start 12/04/18 at 14:15 Docusate Sodium (Colace) 100 mg BID PO Last administered on 12/06/18at 20:26; Start 12/04/18 at 21:00 Magnesium Hydroxide (Milk Of Magnesia) 2,400 mg PRN Q12HR PRN PO CONSTIPATION; Start 12/04/18 at 14:15 Ondansetron HCl (Zofran) 4 mg PRN Q6HRS PRN IV NAUESA, 1ST CHOICE Last administered on 12/05/18at 11:48; Start 12/04/18 at 14:15 Diphenhydramine HCl (Benadryl) 50 mg STK-MED ONCE .ROUTE ; Start 12/04/18 at 14:27; Stop 12/04/18 at 14:27; Status DC Ondansetron HCl (Zofran) 4 mg STK-MED ONCE .ROUTE ; Start 12/04/18 at 14:31; Stop 12/04/18 at 14:48; Status DC Acetaminophen/ Hydrocodone Bitart (Lortab 5/325) 1 tab PRN Q4HRS PRN PO PAIN MILD TO MOD Last administered on 12/05/18at 15:35; Start 12/04/18 at 16:45 Acetaminophen/ Hydrocodone Bitart (Lortab 5/325) 2 tab PRN Q4HRS PRN PO PAIN SEVERE Last administered on 12/07/18at 09:31; Start 12/04/18 at 16:45 Senna/Docusate Sodium (Senna Plus) 1 tab BID PO Last administered on 12/06/18at 20:25; Start 12/06/18 at 10:00 Bisacodyl (Dulcolax Tab) 10 mg DAILY PO Last administered on 12/07/18at 08:05; Start 12/06/18 at 11:00 Bisacodyl (Dulcolax Supp) 10 mg PRN DAILY PRN VT CONSTIPATION; Start 12/06/18 at 09:45 Active Scripts Active Reported Fluticasone Propionate Nasal [place] (Fluticasone Propionate) 16 Gm [place].susp 1 [place] NS DAILY Apriso (Mesalamine) 0.375 Gm Cap.er.24h 4 Cap PO UD Zyrtec (Cetirizine Hcl) 10 Mg Tablet 10 Mg PO HS Systane Gel (Hypromellose) 10 Gm Gel..gram. 1 Drop OU HS Aspirin 81 Mg Tab.chew 81 Mg PO DAILY Sulfasalazine 500 Mg Tablet 500 Mg PO BID Florajen (Lactobacillus Acidophilus) 460 Mg Capsule 460 Mg PO DAILY Peridex (Chlorhexidine Gluconate) 15 Ml Mouthwash 15 Ml PO BID Celebrex (Celecoxib) 200 Mg Capsule 400 Mg PO DAILY 30 Days Tylenol (Acetaminophen) 325 Mg Tablet 650 Mg PO BID PRN Artificial Tears Eye Oint (Mineral Oil/Petrolatum,White) 3.5 Gm Oint...g. 3.5 Gm EACHEYE BID Fish Oil 1,200 Mg Softgel ([place]-3S/Dha/Epa/Fish Oil) 1 Each Capsule 1 Each PO DAILY Glucosamine Chondroitin Cap (Gluc Hcl/Csa/Vazquez Hy/Hyalur Ac) 1 Each Capsule 1 Each PO DAILY Vitamin C (Ascorbic Acid) 1,000 Mg Tablet 1,000 Mg PO DAILY Calcium Carbonate 600 Mg Tablet 600 Mg PO DAILY Daily Vitamin (Multivitamin) 1 Each Tablet 1 Each PO DAILY Imodium A-D (Loperamide Hcl) 1 Mg/7.5 Ml Liquid 1 Mg PO PRN DAILY Zantac (Ranitidine Hcl) 300 Mg Tablet 300 Mg PO HS Restasis (Cyclosporine) 1 Each Droperette 0.05 % EACHEYE BID Vitals/I & O Vital Sign - Last 24 Hours 12/06/18 12/06/18 12/06/18 12/06/18 13:59 14:59 15:00 17:59 Temp 99.0 99.0 Pulse 99 Resp 16 B/P (MAP) 107/59 (75) Pulse Ox 96 94 94 94 O2 Delivery Room Air Room Air Room Air Room Air 12/06/18 12/06/18 12/06/18 12/06/18 17:59 18:24 19:00 19:05 Temp 99.2 99.2 98.8 99.2 99.2 98.8 Pulse 99 99 Resp 16 18 B/P (MAP) 121/55 (77) 121/55 (77) Pulse Ox 94 94 93 O2 Delivery Room Air Room Air Room Air 12/06/18 12/06/18 12/07/18 12/07/18 19:36 22:23 01:03 02:15 Temp 99.1 99.1 Pulse 95 Resp 20 20 18 B/P (MAP) 135/72 (93) Pulse Ox 98 94 O2 Delivery Room Air Room Air Room Air 12/07/18 12/07/18 12/07/18 12/07/18 03:30 06:21 08:00 09:31 Temp 100.0 99.4 100.0 99.4 Pulse 98 94 Resp 20 18 B/P (MAP) 118/64 (82) 116/62 (80) Pulse Ox 97 94 O2 Delivery Room Air Room Air Room Air Room Air 12/07/18 11:16 Temp 98.4 98.4 Pulse 94 Resp 18 B/P (MAP) 105/57 (73) Pulse Ox 96 O2 Delivery Room Air Intake and Output 12/06/18 12/06/18 12/07/18 15:00 23:00 07:00 Intake Total 100 ml 60 ml Balance 100 ml 60 ml MARGY RAMOS MD Dec 07, 2018 12:54
[2018-12-07] MEDS ORDERED: DOCU-109 PO (12:56)
[2018-12-07] MEDS ORDERED: HYDR-2761 PO (12:56)
[2018-12-07] MEDS ORDERED: METH750T2 PO (12:56)
--- NOTE | 2018-12-07 13:15 | SNU/HH DC ---
DISCHARGE ORDERS DISCHARGE INFORMATION: DISCHARGE DATE: Dec 07, 2018 FINAL DIAGNOSIS Problems- lumbar stenosis, s/p lumbar fusion Medical Problems: (1) CAD (coronary artery disease) Status: Chronic (2) Diabetic peripheral neuropathy Status: Chronic (3) HTN (hypertension) Status: Chronic (4) Obesity Status: Chronic CONDITION ON DISCHARGE: Stable CODE STATUS: Code Status: Full INTERMEDIATE: SNF STAY <30 DAYS: Yes HOSPICE: HOSPICE: No HOSPICE EVAL & TREAT: No POST DISCHARGE ORDERS: ACTIVITY ORDERS: Activity as tolerated, Avoid exertion, Progressive ambulation WEIGHT BEARING STATUS: Full weight bearing BATHING ORDERS: Shower-keep dressing dry, No Tub Bath until see Dr. CORTES AFTER DISCHARGE: Cardiac WOUND/INCISION CARE: Ice to area for comfort, Keep wound elevated, Change dressing OTHER WOUND INSTRUCTIONS: daily dressing change FOLLOW-UP: PHYSICIAN FOLLOW-UP: Dr. Wayne 2 weeks [phone] TREATMENT/EQUIPMENT ORDERS: ADAPTIVE EQUIPMENT NEEDED: None, Front wheeled walker Physical Therapy For: Evalulation/Treatment DISCHARGE MEDICATIONS: Home Meds Reported Medications Fluticasone Propionate (FLUTICASONE PROPIONATE NASAL SPRAY) 16 Gm [place].susp, 1 SPRAY NS DAILY for TREAT ALLERGIES, EACH 11/20/18 Mesalamine (APRISO) 0.375 Gm Cap.er.24h, 4 CAP PO UD for TO TREAT COLITIS, CAP.SR 11/20/18 Cetirizine Hcl (ZYRTEC) 10 Mg Tablet, 10 MG PO HS for FOR ALLERGIES, TAB 11/20/18 Hypromellose (SYSTANE GEL) 10 Gm Gel..gram., 1 DROP OU HS for TREAT DRY EYES, EACH 11/20/18 Aspirin (ASPIRIN) 81 Mg Tab.chew, 81 MG PO DAILY for BLOOD THINNER, TAB.CHEW 11/20/18 Sulfasalazine (SULFASALAZINE) 500 Mg Tablet, 500 MG PO BID, TAB 08/29/17 Lactobacillus Acidophilus (FLORAJEN) 460 Mg Capsule, 460 MG PO DAILY for SUPPLEMENT FOR COLON HEALTH, CAP 08/29/17 Chlorhexidine Gluconate (PERIDEX) 15 Ml Mouthwash, 15 ML PO BID, #946 ML 08/29/17 Celecoxib (CELEBREX) 200 Mg Capsule, 400 MG PO DAILY for BACK PAIN for 30 Days, #60 CAP 0 Refills 04/20/16 Acetaminophen (TYLENOL) 325 Mg Tablet, 650 MG PO BID PRN for PAIN 3/4/15 Mineral Oil/Petrolatum,White (ARTIFICIAL TEARS EYE OINT) 3.5 Gm Oint...g., 3.5 GM EACHEYE BID for dry eyes 05/15/14 [place]-3S/Dha/Epa/Fish Oil (FISH OIL 1,200 MG SOFTGEL) 1 Each Capsule, 1 EACH PO DAILY for cholesterol 05/15/14 Gluc Hcl/Csa/Vazquez Hy/Hyalur Ac (GLUCOSAMINE CHONDROITIN CAP) 1 Each Capsule, 1 EACH PO DAILY for JOINT HEALTH SUPPLEMENT 05/15/14 Ascorbic Acid (VITAMIN C) 1,000 Mg Tablet, 1000 MG PO DAILY for vitamin c 05/15/14 Calcium Carbonate (CALCIUM CARBONATE) 600 Mg Tablet, 600 MG PO DAILY for calcium supplement 05/15/14 Multivitamin (DAILY VITAMIN) 1 Each Tablet, 1 EACH PO DAILY for VITAMIN SUPPLEMENT 03/09/13 Loperamide Hcl (IMODIUM A-D) 1 Mg/7.5 Ml Liquid, 1 MG PO PRN DAILY for INTERMITTENT DIARRHEA 03/09/13 Ranitidine Hcl (ZANTAC) 300 Mg Tablet, 300 MG PO HS for TREAT REFLUX 03/09/13 Cyclosporine (RESTASIS) 1 Each Droperette, 0.05 % EACHEYE BID for eye drop 03/09/13 OBDULIO WAYNE MD Dec 07, 2018 13:15
[2018-12-07 15:10] VITALS: BP 117/60
--- NOTE | 2018-12-09 14:42 | OP ---
DATE OF SURGERY: 12/04/2018 PREOPERATIVE DIAGNOSES: 1. Lumbar spinal stenosis, L3-L4, L4-L5. 2. Spondylolisthesis with motion on flexion and extension films, L3-L4, L4-L5. POSTOPERATIVE DIAGNOSES: 1. Lumbar spinal stenosis, L3-L4, L4-L5. 2. Spondylolisthesis with motion on flexion and extension films, L3-L4, L4-L5. OPERATION PERFORMED: Left direct laminectomy at L3-L4, L4-L5; posterior instrumentation L3, L4, L5; posterolateral fusion L3, L4, L5 using allograft and autograft bone. The operation included bone marrow aspiration, fluoroscopy, BrainLAB guidance, multimodality electrophysiologic monitoring. SURGEON: Maxim Wayne M.D. TELEMARKETER: CAROLINE Yanez, assisted with the surgery. She assisted with the decompression and placement of hardware. OPERATIVE INDICATIONS: The patient is a very pleasant 72-year-old woman who has a long history of back and left greater than right leg pain. She has had epidural steroid injections in the past as well as physical therapy without significant benefit. She understood the surgery. She understood the risks. She wished to go ahead. DESCRIPTION OF PROCEDURE: Following general endotracheal anesthesia, the patient was positioned prone on the Tavo table. Lumbar region prepped and draped in standard fashion. CAITLYN hose and AV impulse boots were applied for DVT prophylaxis. The microscope was draped. Fluoroscopy was draped and brought into field. Monitoring was established. Vancomycin 1 gram was given prior to surgery. At this point, iliac posts were placed into the right iliac crest and the BrainLAB system was initialized and then made a midline incision extending from upper L3 to lower L5, dissected down through skin and subcutaneous tissue. We placed self-retaining retractors and exposed the spinous processes and lamina of L3, L4, and L5. I brought in the high speed air drill and burred down a generous left direct laminectomy at L3-L4 and L4-L5. The patient had a significant amount of adipose tissue, which did limit my ability to cross to the contralateral side, but I was able to easily work across the midline and decompressed her well. I did perform partial foraminotomy and fully decompressed the entire region, peeling away thickened ligamentum flavum. There were few epidural veins, which I coagulated, but I was able to obtain an excellent decompression at these 2 levels. Using BrainLAB guidance, I drilled into the posterior aspect of the pedicles of L3, L4, L5 and passed the black ball, followed by ball tip probe, followed by tap, followed by screw placement using AlephCloud Systemser spine system. I used 5.5 and 6.5 screws and these were placed without difficulty. The wendie was placed and they were torqued sequentially following aspiration of 20 mL of bone marrow from the left iliac crest and mixing allograft and autograft bone and packing this into the lateral gutters bilaterally after excoriating the transverse processes in the gutters of L3, L4, and L5. The hardware was torqued sequentially. I explored carefully and assured myself of excellent positioning on x-ray. I did not like the position of the right L5 screw. It appeared slightly more lateral than I wished. I removed the hardware on this side and backed out screw up and then checking with the BrainLAB was in excellent position. The screw was replaced, but angled slightly farther medially and the system was then replaced and sequentially torqued. At this point, then I removed the retractors, obtained excellent hemostasis. I irrigated copiously several times, obtained perfect hemostasis, closed the muscle layer with absorbable suture, followed by subcutaneous tissue in layers, followed by the skin with a subcuticular stitch. The operation went very well and the patient awakened uneventfully, taken to recovery room in excellent condition with normal strength in her lower extremities. I was quite pleased with the surgery. MAXIM WAYNE MD DR: TONYA/leidy JOB#: [id number] / [id number] BELEM
== END 2018-12-07 15:40 | DRG 460 ==
LOC: OPSVCIP 12-04 06:07 → 4 SOUTHEST 12-04 16:15
PROVIDERS: ADMIT Neurological Surgery; ATTEND Neurological Surgery
PROC: 01NB0ZZ Release Lumbar Nerve, Open Approach (ICD-10-PCS; 2018-12-04)
PROC: 07DR0ZZ Extraction of Iliac Bone Marrow, Open Approach (ICD-10-PCS; 2018-12-04)
PROC: 0SG1071 Fusion of 2 or more Lumbar Vertebral Joints with Autologous Tissue Substitute, Posterior Approach, Posterior Column, Open Approach (ICD-10-PCS; principal; 2018-12-04 08:30)
DX: M48.062 Spinal stenosis, lumbar region with neurogenic claudication (principal); M43.16 Spondylolisthesis, lumbar region; Z86.14 Personal history of Methicillin resistant Staphylococcus aureus infection; M19.90 Unspecified osteoarthritis, unspecified site; E66.9 Obesity, unspecified; G89.29 Other chronic pain; I25.10 Atherosclerotic heart disease of native coronary artery without angina pectoris; J44.9 Chronic obstructive pulmonary disease, unspecified; M51.36 Other intervertebral disc degeneration, lumbar region; M47.816 Spondylosis without myelopathy or radiculopathy, lumbar region; I27.20 Pulmonary hypertension, unspecified; I10 Essential (primary) hypertension; E11.42 Type 2 diabetes mellitus with diabetic polyneuropathy; K57.90 Diverticulosis of intestine, part unspecified, without perforation or abscess without bleeding; Z96.653 Presence of artificial knee joint, bilateral; Z90.710 Acquired absence of both cervix and uterus; Z90.49 Acquired absence of other specified parts of digestive tract; Z82.49 Family history of ischemic heart disease and other diseases of the circulatory system; Z83.3 Family history of diabetes mellitus; Z80.9 Family history of malignant neoplasm, unspecified; Z82.69 Family history of other diseases of the musculoskeletal system and connective tissue; Z87.891 Personal history of nicotine dependence; Z68.39 Body mass index [BMI] 39.0-39.9, adult
CPT/HCPCS: 36415; 72131; 76000; 86850; 86900; 86901; 88304; 88311; A7015; C1713; J1100; J1200; J1885; J2001; J2405; J2704; J3010; J3370; J3490; J7030; J7050; J7120; Q0163; 97110; 97116; 97530; 97535; G0378

== ENCOUNTER → 2018-11-20 | Outpatient (CLI) | payer MEDICARE, OTHER ==
[2016-06-02 09:55] VITALS: BP 109/55
[~2018-11-20] MED LIST changes: +ASPI-630 PO; +CETI10TA22 PO; +FLUT16SP NS; +HYPR10GE OU
[2018-11-20 16:53] LABS: BASO % 1 % (0-3); EOS % 0 % (0-3); HEMATOCRIT 38.3 % (36.0-47.0); LYMPH % 42 % (24-48); MEAN CORPUSCULAR HEMOGLOBIN 33 pg (25-35); MEAN CORPUSCULAR HGB CONC 34 g/dL (31-37); MEAN CORPUSCULAR VOLUME 98 fL (79-100); MONO # 0.5 x10^3/uL (0.0-1.1); MONO % 10 % (0-9); NEUT # 2.2 x10^3/uL (1.8-7.7); NEUT % 47 % (31-73); PLATELET COUNT 146 x10^3/uL (140-400); RED CELL DISTRIBUTION WIDTH 12.5 % (11.5-14.5); WHITE BLOOD COUNT 4.6 x10^3/uL (4.0-11.0)
[2018-11-20 17:11] LABS: ALBUMIN 3.7 g/dL (3.4-5.0); ALBUMIN/GLOBULIN RATIO 0.9 (1.0-1.7); CREATININE 0.8 mg/dL (0.6-1.0); GFR 84.8; POTASSIUM 3.8 mmol/L (3.5-5.1); TOTAL BILIRUBIN 0.9 mg/dL (0.2-1.0); TOTAL PROTEIN 7.9 g/dL (6.4-8.2)
== END | disposition home or self-care (01) ==
LOC: SURGPAT 13:28
PROVIDERS: ATTEND Neurological Surgery
DX: Z01.818 Encounter for other preprocedural examination (principal); M43.16 Spondylolisthesis, lumbar region; M48.062 Spinal stenosis, lumbar region with neurogenic claudication; M54.16 Radiculopathy, lumbar region; Z88.5 Allergy status to narcotic agent; Z88.8 Allergy status to other drugs, medicaments and biological substances
CPT/HCPCS: 36415; 80053; 82306; 85025; 85610; 85730; 87641

== ENCOUNTER → 2019-02-02 | Outpatient (CLI) | payer MEDICARE, OTHER ==
[~2019-02-02] MED LIST changes: +DOCU-109 PO; +HYDR-2761 PO; +METH750T2 PO; -MOME45CR2 TP; +MOME45CR3 TP
--- NOTE | 2019-02-02 16:51 | KCIC ---
LUMBAR SPINE 2-3V 02/02/2019 12:00 AM Indication: Status post lumbar fusion COMPARISON: Lumbar spine CT 12/03/2018 TECHNIQUE: 3 views of the lumbar spine are provided. Findings/ impression: 1. Posterior fusion is identified from L3 through L5 with bilateral pedicle screws and dual rods. There is no significant lucency surrounding the hardware. No fracture of the hardware. 2. Grade 1 anterolisthesis of L3 on L4 and L4 on L5. Vertebral body heights are maintained. No acute fracture is identified. Mild disc height loss at L3-L4 and L4-L5. There is moderate facet arthropathy in the lower lumbar spine. 3. Nonobstructive bowel gas pattern. Electronically signed by: Kindra Mora MD (02/02/2019 4:48 PM) [id number]
== END | disposition home or self-care (01) ==
LOC: KCIC 13:54
PROVIDERS: ATTEND Neurological Surgery
DX: M43.16 Spondylolisthesis, lumbar region (principal); M46.86 Other specified inflammatory spondylopathies, lumbar region; Z98.1 Arthrodesis status
CPT/HCPCS: 72100

== ENCOUNTER → 2019-03-09 | Outpatient (CLI) | payer MEDICARE, OTHER ==
--- NOTE | 2019-03-09 15:33 | KCIC ---
EXAM: Lumbar spine, 2 views. HISTORY: Fusion. COMPARISON: 02/02/2019 FINDINGS: 2 views of the lumbar spine are obtained. There is instrumented posterior spinal fusion at L3-L5. There is grade 1 anterolisthesis of L3 on L4 and L4 and L5 and L5-S1. There is degenerative endplate remodeling and disc space narrowing at L4-L5. There is multilevel facet arthropathy. There is minimal lumbar levoscoliosis centered at L3. IMPRESSION: 1. Instrumented fusion at L3-L5. 2. Grade 1 anterolisthesis at the fused levels and L5-S1, stable in appearance. 3. Degenerative change primarily at L4-L5. Electronically signed by: Karissa Navarro MD (03/09/2019 3:30 PM) [facility]
== END | disposition home or self-care (01) ==
LOC: KCIC 14:52
PROVIDERS: ATTEND Neurological Surgery
DX: M43.17 Spondylolisthesis, lumbosacral region (principal); M47.816 Spondylosis without myelopathy or radiculopathy, lumbar region; M12.88 Other specific arthropathies, not elsewhere classified, other specified site; M48.061 Spinal stenosis, lumbar region without neurogenic claudication; Z98.890 Other specified postprocedural states
CPT/HCPCS: 72100

== ENCOUNTER → 2019-05-23 | Outpatient (CLI) | payer MEDICARE, OTHER ==
[~2019-05-23] MED LIST changes: -CETI10TA22 PO; +CETI10TA24 PO
--- NOTE | 2019-05-23 17:15 | KCIC ---
Examination: LUMBAR SPINE 2-3V History: Postoperative fusion, pain Comparison/Correlation: 03/09/2019 lumbar spine x-ray exam Findings: A total of 4 images of the lumbar spine were obtained. This includes lateral views by supine technique and a lateral view obtained with the patient standing in flexion. There is instrumented posterior spinal fusion at L3-L5. There is grade 1 anterolisthesis of L3 on L4 and L4 and L5 and L5-S1. There is degenerative endplate remodeling and disc space narrowing at L4-L5. There is multilevel facet arthropathy. No significant change in alignment upon comparison with standing flexion view and lateral supine view. Vertebral body heights are adequate. Impression: Postoperative changes. No interval difference compared to prior exam. Electronically signed by: Anthony Ojeda MD (05/23/2019 5:12 PM) [id number]
== END | disposition home or self-care (01) ==
LOC: KCIC 15:18
PROVIDERS: ATTEND Neurological Surgery
DX: M47.816 Spondylosis without myelopathy or radiculopathy, lumbar region (principal); M48.061 Spinal stenosis, lumbar region without neurogenic claudication; M43.16 Spondylolisthesis, lumbar region
CPT/HCPCS: 72100

== ENCOUNTER → 2019-07-27 | Outpatient (CLI) | payer MEDICARE, OTHER ==
--- NOTE | 2019-07-27 14:54 | RAD ---
BONE SCAN 3 PHASE Clinical Indication: Bilateral knee pain x3 years. Left knee replacement 2016. Right knee replacement 2017. Left lateral lower leg swollen x2 years. Comparison: Bilateral knee radiographs June 25, 2019. TECHNIQUE: Patient is injected with 25.5 mCi of technetium 99m MDP. Anterior and posterior angiographic phase images of the knees acquired. Anterior and posterior immediate static images of the knees. After 3 hour delay multiple projection static images of the knees acquired. Findings: There is hyperemia in the region of the upper left knee anteriorly. No right knee hyperemia is seen. There is increased tracer uptake of the upper left knee on immediate static (blood pool) images. On delay images periprosthesis tracer uptake of the right knee is normal. There is increased tracer uptake of the left lateral distal femur adjacent to the prosthesis. There is also increased tracer uptake of the tibial plateau medially and laterally. IMPRESSION: 1. There is increased tracer uptake on all 3 phases adjacent to the left knee arthroplasty femoral prosthesis laterally. There is greater than expected tracer uptake of the left tibial plateau on the delay phase images. These findings are suggestive of loosening. 2. Right knee arthroplasty is normal. Electronically signed by: Baltazar Patel MD (07/27/2019 2:51 PM) [id number]
== END ==
LOC: NM 10:46
PROVIDERS: ATTEND Orthopaedic Surgery
DX: M25.561 Pain in right knee (principal); M25.562 Pain in left knee; Z96.653 Presence of artificial knee joint, bilateral
CPT/HCPCS: 78315; A9503

== ENCOUNTER 2020-02-02 14:58 | Emergency (ER) | payer MEDICARE, OTHER ==
[~2020-02-02] VITALS: Ht 165.1 cm; Wt 87.2 kg
[~2020-02-02 14:58] MED LIST changes: +ASCO100019 PO; -ASCO10002 PO; -CETI10TA24 PO; +CETI10TA74 PO; -WARF-78 PO; +WARF5TAB2 PO
[2020-02-02 15:37] VITALS: BP 154/76
--- NOTE | 2020-02-02 15:41 | PHYS DOC ---
Past Medical History Smoking Status: Former Smoker General Adult EDM: Chief Complaint: COUGH HPI: HPI: Patient is a 74 year old female who presents with was around her boyfriend on this past Tuesday and on Tuesday the boyfriend was diagnosed with Covid. Patient states that she has no new symptoms but has seasonal allergies and has been sneezing and has a slight cough. Patient states the symptoms are not new for her. Patient would like to be checked for Covid. Patient denies chest pain, shortness of breath, headache, dizziness, nausea, vomiting, abdominal pain, diarrhea, fever, numbness or tingling, focal weakness. Review of Systems: Review of Systems: Constitutional: Denies fever or chills. [] Eyes: Denies change in visual acuity. [] HENT: Denies nasal congestion or sore throat. [] Respiratory: Denies cough or shortness of breath. [] Cardiovascular: Denies chest pain or edema. [] GI: Denies abdominal pain, nausea, vomiting, bloody stools or diarrhea. [] : Denies dysuria. [] Musculoskeletal: Denies back pain or joint pain. [] Integument: Denies rash. [] Neurologic: Denies headache, focal weakness or sensory changes. [] Endocrine: Denies polyuria or polydipsia. [] Lymphatic: Denies swollen glands. [] Psychiatric: Denies depression or anxiety. [] Heart Score: Risk Factors: Risk Factors: DM, Current or recent (<one month) smoker, HTN, HLP, family history of CAD, obesity. Risk Scores: Score 0 - 3: 2.5% MACE over next 6 weeks - Discharge Home Score 4 - 6: 20.3% MACE over next 6 weeks - Admit for Clinical Observation Score 7 - 10: 72.7% MACE over next 6 weeks - Early Invasive Strategies Allergies: Allergies: Allergies Coded Allergies Type Severity Reaction Last Updated Verified Penicillins Allergy Intermediate RASH AND HIVES 06/02/16 Yes hydromorphone Allergy Unknown 12/04/18 Yes morphine Adverse Reaction Intermediate Nausea and Vomiting 06/02/16 Yes oxycodone Adverse Reaction Intermediate Nausea 06/02/16 Yes Physical Exam: PE: Constitutional: Well developed, well nourished, no acute distress, non-toxic appearance. [] HENT: Normocephalic, atraumatic, bilateral external ears normal, oropharynx moist, no oral exudates, nose normal. [] Eyes: PERRLA, EOMI, conjunctiva normal, no discharge. [] Neck: Normal range of motion, no tenderness, supple, no stridor. [] Cardiovascular:Heart rate regular rhythm, no murmur [] Lungs & Thorax: Bilateral breath sounds clear to auscultation [] Abdomen: Bowel sounds normal, soft, no tenderness, no masses, no pulsatile masses. [] Skin: Warm, dry, no erythema, no rash. [] Back: No tenderness, no CVA tenderness. [] Extremities: No tenderness, no cyanosis, no clubbing, ROM intact, no edema. [] Neurologic: Alert and oriented X 3, normal motor function, normal sensory function, no focal deficits noted. [] Psychologic: Affect normal, judgement normal, mood normal. Normal physical exam [] EKG: EKG: [] Radiology/Procedures: Radiology/Procedures: [] Impression: [facility] [address] [place], [place] [id number] IMAGING REPORT Signed PATIENT: LIMA LIGHT ACCOUNT: [id number] : 1945 LOCATION: ER AGE: 74 SEX: F EXAM STATUS: REG ER ORD. PHYSICIAN: AZALIA DOUGLASS APRN REASON: COUGH, EXPOSURE TO COVID PROCEDURE: PORTABLE CHEST 1V Portable AP chest 02/02/2020. Reason for exam: Cough. Covid 19 exposure. No infiltrate or effusion is seen. Heart size and pulmonary vascularity appear normal. IMPRESSION: No acute disease. Electronically signed by: Reji Carrasco Jr., MD (02/02/2020 3:55 PM) [id number] DICTATED and SIGNED BY: REJI CARRASCO Jr, MD DATE: 02/02/20 [id number] Course & Med Decision Making: Course & Med Decision Making Pertinent Labs and Imaging studies reviewed. (See chart for details) COVID-19 CRITERIA: The patient was evaluated during the global COVID-19 pandemic, and that diagnosis was suspected/considered upon their initial presentation. Their evaluation, treatment and testing was consistent with current guidelines for patients who present with complaints or symptoms that may be related to COVID-19. See HPI. Lungs are clear all station all lobes. Speaks in full complete sentences. Ambulatory with a steady gait. No extremity swelling. Alert and oriented x4. Afebrile. Patient is tested for Covid here in the ED. [] Kayodeon Disclaimer: Eliceo Disclaimer: This electronic medical record was generated, in whole or in part, using a voice recognition dictation system. Departure Departure Impression: Primary Impression: Person under investigation for COVID-19 Additional Impression: Cough Disposition: 01 DC HOME SELF CARE/HOMELESS Condition: STABLE Referrals: WHIT LUO MD (PCP) Patient Instructions: Cough, Adult Additional Instructions: Follow-up with your primary care provider if needed. Covid test will come back in 24 to 48 hours. Drink plenty of fluids. You have been tested for or diagnosed with COVID-19. It is an infection caused by a new type of coronavirus. COVID-19 will cause cold-like or mild flu symptoms in most. It can cause more severe symptoms like problems breathing in some. There is no treatment for COVID-19. The body will clear the infection over time. Self-care will help to ease discomfort. Steps to Take: Self-Care Rest as needed. Healthy habits may help you feel better. Steps include: Choose healthy foods including fruits and vegetables. Drink water throughout the day. Get plenty of sleep each night. If you smoke, try to quit. It may ease breathing. Avoid alcohol. Keep Others Healthy The virus can spread to others. Droplets are released every time you sneeze or cough. The droplets can get into the mouth, nose, or eyes of people near you and lead to infection. To lower the chances of spreading COVID-19 to others: Stay at home until your doctor has said it is safe to leave. If you tested positive this will mean staying isolated until both of the following are true: At least 7 days have passed since the start of illness. You are free of fever for at least 72 hours without the use of medicine. During this time: - Avoid public areas, events, or transportation. Do not return to work or school until your doctor has said it is safe to do so. - Call ahead if you need to go to a medical center. Let them know you may have COVID-19. It will help them guide you where to go. They may also ask you to wear a facemask when you come to the office. - If you call for emergency medical services, let them know you may have COVID- 19. While at home: - Try to avoid close contact with others. Stay about 6 feet away. - If possible, spend most of your time in a separate room from others. - Use a face mask if you will be in close contact with others such as sharing a room or vehicle. - Have someone wipe down common surfaces in the home. Use household music pastor every day on areas like doorknobs, counters, or sinks. - Cough or sneeze into a tissue. Throw the tissue away right after use. If a tissue is not available, cough or sneeze into your elbow. - Wash your hands often. Wash them after sneezing or coughing. Use soap and water and wash for at least 20 seconds. Alcohol based hand basting cleaner can be used if soap and water is not available. - Do not prepare food for others. Avoid sharing personal items like forks, spoons, or toothbrushes. - Avoid close contact with pets while you are sick. There is no evidence of the virus passing to pets. This is a safety step until more is known about this virus. Isolation can be frustrating. Social interaction can help. Keep in touch with friends and family through phone and tech options. You can still interact with others in your home, just keep a safe distance of about 6 feet. Follow-up: Your doctors office will check in with you to see if there are any changes in your health. You may be asked to keep track of symptoms to share with them. They will also let you know when you are clear to be in public again. Problems to Look Out For: Contact your doctor if your recovery is not going as you expect. Get emergency care if you have problems such as: - Trouble breathing - Nonstop chest pain or pressure - Changes in awareness, confusion, or problems waking - Lips or face have bluish color - Worsening of symptoms If you think you have an emergency, call for emergency medical services right away. As taken from [facility] AZALIA Delgado APRN Feb 02, 2020 15:41
--- NOTE | 2020-02-02 15:58 | RAD ---
Portable AP chest 02/02/2020. Reason for exam: Cough. Covid 19 exposure. No infiltrate or effusion is seen. Heart size and pulmonary vascularity appear normal. IMPRESSION: No acute disease. Electronically signed by: Lázaro Carrasco Jr., MD (02/02/2020 3:55 PM) [id number]
--- NOTE | 2020-02-04 09:07 | NUR ---
IP: Informed pt of negative COVID test. Pt verbalized understanding.
== END 2020-02-02 16:33 | disposition home or self-care (01) ==
LOC: ER 14:58
DX: R05 Cough (principal); R06.7 Sneezing; Z20.828 Contact with and (suspected) exposure to other viral communicable diseases; Z87.891 Personal history of nicotine dependence; Z88.0 Allergy status to penicillin; Z88.5 Allergy status to narcotic agent
CPT/HCPCS: 71045; 99284; C9803; U0003

== ENCOUNTER → 2020-04-23 | Outpatient (CLI) | payer MEDICARE, OTHER ==
[~2020-04-23] MED LIST changes: +METH-562 PO; -METH750T2 PO
--- NOTE | 2020-04-23 16:37 | CARD ---
MR#: [id number] Date of Study: 04/23/2020 Ordering Physician: LULU SNIDER, Referring Physician: LULU SNIDER, Tech: Magalys Wayne, [facility] APPROVED REPORT EXAM: Two-dimensional and M-mode echocardiogram with Doppler and color Doppler. Other Information Quality : AverageHR: 64bpm INDICATION Pre-Op RISK FACTORS Hypertension 2D DIMENSIONS Left Atrium(2D)2.4 (1.6-4.0cm)IVSd1.3 (0.7-1.1cm) Aortic Root(2D)3.5 (2.0-3.7cm)LVDd4.3 (3.9-5.9cm) LVOT Diameter2.1 (1.8-2.4cm)PWd1.0 (0.7-1.1cm) LVDs2.6 (2.5-4.0cm)FS (%) 39.1 % SV57.2 mlLVEF(%)69.9 (>50%) Aortic Valve AoV Peak Alberto.106.9cm/sAoV VTI22.3cm AO Peak GR.4.6mmHgLVOT Peak Alberto.97.3cm/s LVOT VTI 20.28cmAO Mean GR.2mmHg CHADD (VMAX)2.95zu1EWO (VTI)3.06cm2 Mitral Valve MV E Eeybnmpv78.0cm/sMV DECEL LTAT373uv MV A Wjgvayze84.4cm/sMV RTN27ov E/A Ratio0.6MVA (PHT)2.60cm2 TDI E/Lateral E'6.7E/Medial E'6.8 Pulmonary Valve PV Peak Hmkfnrwx83.6cm/sPV Peak Grad.4mmHg Tricuspid Valve TR P. Flhhywoq153nc/sRAP EVJJAYFQ1eeFh TR Peak Gr.90cdUoECLG42adGo Pulmonary Vein S1 Cnepxwos95.2cm/sD2 Dyezsdml85.6cm/s PVa jthldnpc521sgsj LEFT VENTRICLE The left ventricle is normal size. There is mild concentric left ventricular hypertrophy. The left ve ntricular systolic function is normal. The ejection fraction is 55-60%. There is normal LV segmental wall motion. Transmitral Doppler flow pattern is Grade I-abnormal relaxation pattern. RIGHT VENTRICLE The right ventricle is normal size. There is normal right ventricular wall thickness. The right ventr icular systolic function is normal. ATRIA The left atrium size is normal. The right atrium size is normal. The interatrial septum is intact wit h no evidence for an atrial septal defect or patent foramen ovale as noted on 2-D or Doppler imaging. AORTIC VALVE The aortic valve is normal in structure and function. Doppler and Color Flow revealed no significant aortic regurgitation. There is no significant aortic valvular stenosis. Calculated aortic valve area is 2.73 cm2 with maximum pressure gradient of 6 mmHg and mean pressure gradient of 3 mmHg. MITRAL VALVE The mitral valve is normal in structure and function. There is no evidence of mitral valve prolapse. There is no mitral valve stenosis. Doppler and Color-flow revealed trace mitral regurgitation. TRICUSPID VALVE The tricuspid valve is normal in structure and function. Doppler and Color Flow revealed trace tricus pid regurgitation with an estimated PAP of 18 mmHg. There is no tricuspid valve stenosis. PULMONIC VALVE The pulmonic valve is not well visualized. Doppler and Color Flow revealed trace pulmonic valvular re gurgitation. GREAT VESSELS The aortic root is normal in size. The IVC is normal in size and collapses >50% with inspiration. PERICARDIAL EFFUSION There is no evidence of significant pericardial effusion. Critical Notification Critical Value: No <Conclusion> The left ventricular systolic function is normal. The ejection fraction is 55-60%. There is normal LV segmental wall motion. Transmitral Doppler flow pattern is Grade I-abnormal relaxation pattern. Trace mitral regurgitation. Trace tricuspid regurgitation with an estimated PAP of 18 mmHg. There is no evidence of significant pericardial effusion. Signed by : Lulu Snider, Electronically Approved : 04/23/2020 16:37:04
== END ==
LOC: ECHO 13:41
PROVIDERS: ATTEND Internal Medicine Cardiovascular Disease
DX: Z01.810 Encounter for preprocedural cardiovascular examination (principal); I10 Essential (primary) hypertension
CPT/HCPCS: 93306

== ENCOUNTER → 2021-05-04 | Outpatient (CLI) | payer MEDICARE, OTHER ==
[~2021-05-04] MED LIST changes: -DOXY100C2 PO; +DOXY100C3 PO; -LACT1CAP29 PO; +LACT1CAP37 PO
--- NOTE | 2021-05-05 07:28 | CARD ---
MR#: [id number] Date of Study: 05/04/2021 Ordering Physician: LULU SALDIVAR, Referring Physician: LULU SALDIVAR Tech: Rochelle Kuo [facility] APPROVED REPORT EXAM: Two-dimensional and M-mode echocardiogram with Doppler and color Doppler. Other Information Quality : GoodHR: 73bpm Rhythm : NSR INDICATION Dyspnea 2D DIMENSIONS RVDd3.3 (2.9-3.5cm)Left Atrium(2D)3.1 (1.6-4.0cm) IVSd1.3 (0.7-1.1cm)Aortic Root(2D)3.8 (2.0-3.7cm) LVDd4.8 (3.9-5.9cm)LVOT Diameter2.1 (1.8-2.4cm) PWd1.3 (0.7-1.1cm)LVDs2.9 (2.5-4.0cm) FS (%) 40.0 %SV74.5 ml LVEF(%)70.6 (>50%) Aortic Valve AoV Peak Alberto.121.2cm/sAoV VTI23.0cm AO Peak GR.5.9mmHgLVOT Peak Alberto.87.2cm/s AO Mean GR.3mmHgAVA (VMAX)2.48cm2 Mitral Valve MV E Ulncbzwz10.9cm/sMV DECEL VPTJ217ic MV A Ljzcmyrg75.7cm/sE/A Ratio0.6 Tricuspid Valve TR P. Ahvibjkv478yr/sTR Peak Gr.20mmHg LEFT VENTRICLE The left ventricle is normal size. There is mild concentric left ventricular hypertrophy. The left ve ntricular systolic function is normal. Estimated ejection 60 to 65 %. There is normal LV segmental wa ll motion. Transmitral Doppler flow pattern is Grade I-abnormal relaxation pattern. RIGHT VENTRICLE The right ventricle is normal size. There is normal right ventricular wall thickness. The right ventr icular systolic function is normal. ATRIA The left atrium size is normal. The right atrium size is normal. The interatrial septum is intact wit h no evidence for an atrial septal defect or patent foramen ovale as noted on 2-D or Doppler imaging. AORTIC VALVE The aortic valve is normal in structure and function. Doppler and Color Flow revealed no significant aortic regurgitation. There is no significant aortic valvular stenosis. MITRAL VALVE The mitral valve is normal in structure and function. There is no evidence of mitral valve prolapse. Doppler and Color Flow revealed no mitral valve regurgitation noted. TRICUSPID VALVE The tricuspid valve is normal in structure and function. Doppler and Color Flow revealed mild tricusp id regurgitation. Estimated PAP 22-25 mmHg.. There is no tricuspid valve stenosis. PULMONIC VALVE The pulmonary valve is normal in structure and function. Doppler and Color Flow revealed no pulmonic valvular regurgitation. GREAT VESSELS The aortic root is normal in size. The ascending aorta is normal in size. The IVC is normal in size a nd collapses >50% with inspiration. PERICARDIAL EFFUSION There is no evidence of significant pericardial effusion. Critical Notification Critical Value: No <Conclusion> The left ventricular systolic function is normal. Estimated ejection 60 to 65 %. There is normal LV segmental wall motion. Transmitral Doppler flow pattern is Grade I-abnormal relaxation pattern. Mild tricuspid regurgitation. Estimated PAP 22-25 mmHg.. There is no evidence of significant pericardial effusion. Signed by : Lulu Saldivar, Electronically Approved : 05/05/2021 07:28:27
== END ==
LOC: ECHO 14:44
PROVIDERS: ATTEND Internal Medicine Cardiovascular Disease
DX: I07.1 Rheumatic tricuspid insufficiency (principal); I10 Essential (primary) hypertension; R06.00 Dyspnea, unspecified
CPT/HCPCS: 93306; C8929